=== PATIENT | female | born 1985 | race African-American/Black ===

== ENCOUNTER 2016-06-13 21:27 | Emergency (ER) | payer MEDICAID ==
--- NOTE | 2016-06-13 22:04 | ER Document Report ---
ED Medical Screen (RME) - General Chief Complaint: Diarrhea Stated Complaint: DIARRHEA/HEADACHE/SORE THROAT Time seen by provider: 22:01 Mode of Arrival: Ambulatory Information source: Patient Notes: 30 yo female presents to ed for smelly burps, nausea, diarrhea, headache, sore throat, and chest pain for a few days. LMP jun 05 TRAVEL OUTSIDE OF THE [place] IN LAST 30 DAYS: No - HPI Onset: Other - 2 days ago Onset/Duration: Gradual Quality of pain: Pressure, Throbbing Severity: Moderate Pain Level: 3 Associated Symptoms: Chest pain, Diarrhea, Sore throat, Other - smelly burps Exacerbated by: Denies Relieved by: Denies Similar symptoms previously: No Recently seen / treated by doctor: No - Related Data Smoking: Cigarettes, Less than 1 pack/day Frequency of alcohol use: Rare Drug Abuse: None Allergies/Adverse Reactions: No Known Allergies Allergy (Verified 06/13/16 21:51) Past Medical History - Social History Chew tobacco use (# tins/day): No Frequency of alcohol use: Occasional Drug Abuse: None Family history: Reviewed & Not Pertinent Neurological Medical History: Reports: Hx Migraine Renal/ Medical History: Reports: Hx Kidney Stones Musculoskeltal Medical History: Reports Hx Musculoskeletal Trauma Skin Medical History: Reports Hx Cellulitis, Reports Hx Eczema Psychiatric Medical History: Reports: Hx Bipolar Disorder, Hx Depression - Immunizations Hx Diphtheria, Pertussis, Tetanus Vaccination: No
[2016-06-13 22:29] LABS: ABSOLUTE EOSINOPHILS # (AUTO) 0.1 10^3/uL (0.0-0.6); ABSOLUTE LYMPHOCYTES (AUTO) 1.7 10^3/uL (0.5-4.7); ABSOLUTE MONOCYTES (AUTO) 0.5 10^3/uL (0.1-1.4); ABSOLUTE NEUT (AUTO) 3.1 10^3/uL (1.7-8.2); BASOPHILS % (AUTO) 0.4 % (0-2); EOSINOPHILS % (AUTO) 1.9 % (0-6); HEMATOCRIT 38.8 % (36.0-47.0); HEMOGLOBIN 12.8 g/dL (12.0-15.5); HGB HCT DIFFERENCE -0.4; LYMPHOCYTES % (AUTO) 31.4 % (13-45); MEAN CORPUSCULAR HEMOGLOBIN 28.9 pg (27.0-33.4); MEAN CORPUSCULAR VOLUME 88 fl (80-97); MONOCYTES % (AUTO) 8.5 % (3-13); RED BLOOD COUNT 4.43 10^6/uL (3.72-5.28); RED CELL DISTRIBUTION WIDTH 13.2 % (11.5-14.0); SEGMENTED NEUTROPHILS % (AUTO) 57.8 % (42-78); WHITE BLOOD COUNT 5.3 10^3/uL (4.0-10.5)
[2016-06-13 22:45] LABS: ALANINE AMINOTRANSFERASE 40 U/L (9-52); ALKALINE PHOSPHATASE 77 U/L (38-126); ANION GAP 10 (5-19); ASPARTATE AMINO TRANSFERASE 26 U/L (14-36); BILIRUBIN,TOTAL 0.2 mg/dL (0.2-1.3); BLOOD UREA NITROGEN 8 mg/dL (7-20); CALCIUM 8.8 mg/dL (8.4-10.2); CARBON DIOXIDE 27 mmol/L (22-30); CHLORIDE 105 mmol/L (98-107); CREATINE KINASE 136 U/L (30-135); CREATININE RESULT 0.67 mg/dL (0.52-1.25); GLUCOSE 95 mg/dL (75-110); MAGNESIUM 1.7 mg/dL (1.6-2.3); POTASSIUM 3.7 mmol/L (3.6-5.0); SODIUM 142.1 mmol/L (137-145); TOTAL PROTEIN 6.5 g/dL (6.3-8.2)
[2016-06-13 22:56] LABS: CREATINE KINASE MB 0.67 ng/mL (<4.55)
[2016-06-13 22:57] LABS: TROPONIN I < 0.012 ng/mL
[2016-06-14] MEDS ORDERED: LOPERAMIDE HCL 2 MG CAPSULE PO ONE (02:28)
[2016-06-14] MEDS ORDERED: SUCRALFATE 1 GM TABLET PO ONE (02:28)
[2016-06-14] MEDS ORDERED: ONDANSETRON 4 MG TAB.RAPDIS PO ONE (02:28)
--- NOTE | 2016-06-14 02:28 | ER Document Report ---
ED GI/ - General Mode of Arrival: Ambulatory Information source: Patient TRAVEL OUTSIDE OF THE [place] IN LAST 30 DAYS: No - HPI Patient complains to provider of: Other - see above Quality of pain: Burning, Cramping Associated symptoms: Other - see above Similar symptoms previously: No Recently seen / treated by doctor: No <BETTIE DESAI - Last Filed: 06/14/16 04:19> <LUIS EDUARDO HUERTAS - Last Filed: 06/14/16 05:13> - General Chief Complaint: Diarrhea Stated Complaint: DIARRHEA/HEADACHE/SORE THROAT Notes: Patient is a 30-year-old female that presents to the emergency department today with complaints of nausea, burping, and chest pain. Patient states she has had no vomiting but has had multiple episodes of diarrhea. Patient states she has not used any antibiotics recently. (BETTIE DESAI) - Related Data Allergies/Adverse Reactions: No Known Allergies Allergy (Verified 06/13/16 21:51) Past Medical History - General Information source: Patient - Social History Smoking Status: Current Some Day Smoker Cigarette use (# per day): Yes Chew tobacco use (# tins/day): No Frequency of alcohol use: Occasional Drug Abuse: None Lives with: Family Family History: Reviewed & Not Pertinent Patient has suicidal ideation: No Patient has homicidal ideation: No Neurological Medical History: Reports: Hx Migraine Renal/ Medical History: Reports: Hx Kidney Stones Musculoskeltal Medical History: Reports Hx Musculoskeletal Trauma Skin Medical History: Reports Hx Cellulitis, Reports Hx Eczema Psychiatric Medical History: Reports: Hx Bipolar Disorder, Hx Depression Surgical Hx: Negative - Immunizations Hx Diphtheria, Pertussis, Tetanus Vaccination: No Hx Pneumococcal Vaccination: 03/09/12 <BETTIE DESAI - Last Filed: 06/14/16 04:19> Review of Systems - Review of Systems Constitutional: No symptoms reported EENT: No symptoms reported Cardiovascular: See HPI, Chest pain Respiratory: No symptoms reported Gastrointestinal: See HPI, Nausea, Other - "burping" Genitourinary: No symptoms reported Female Genitourinary: No symptoms reported Musculoskeletal: No symptoms reported Skin: No symptoms reported Hematologic/Lymphatic: No symptoms reported Neurological/Psychological: No symptoms reported -: Yes All other systems reviewed and negative <BETTIE DESAI - Last Filed: 06/14/16 04:19> Physical Exam <BETTIE DESAI - Last Filed: 06/14/16 04:19> <LUIS EDUARDO HUERTAS - Last Filed: 06/14/16 05:13> - Vital signs Vitals: Temp Pulse Resp BP Pulse Ox 98.3 F 85 18 148/84 H 99 06/13/16 22:03 06/13/16 22:03 06/13/16 22:03 06/13/16 22:03 06/13/16 22:03 (BETTIE DESAI) (LUIS EDUARDO HUERTAS) - Notes Notes: Physical Exam: General: Alert, appears well. HEENT: Normocephalic. Atraumatic. PERRL. Extraocular movements intact. Oropharynx clear. Neck: Supple. Non-tender. Respiratory: No respiratory distress. Clear and equal breath sounds bilaterally. Cardiovascular: Regular rate and rhythm. Abdominal: Obese. Non-tender. No distension. Normal Bowel Sounds. Back: Non-tender. No deformity or step off. Extremities: Moves all four extremities. Upper extremities: Normal inspection. Non-tender. Normal color. Normal ROM. Normal temperature. Lower extremities: Normal inspection. Non-tender. No edema. Normal color. Normal ROM. Normal temperature. Neurological: Normal cognition. AAOx4. Normal speech. Psychological: Normal affect. Normal Mood. Skin: Warm. Dry. Normal color. (BETTIE DESAI) Course - Laboratory Result Diagrams: 06/13/16 22:15 06/13/16 22:15 <BETTIE DESAI - Last Filed: 06/14/16 04:19> - Laboratory Result Diagrams: 06/13/16 22:15 06/13/16 22:15 <LUIS EDUARDO HUERTAS - Last Filed: 06/14/16 05:13> - Re-evaluation Re-evalutation: 06/14/16 Patient appears well. Labs within normal limits. Taking by mouth. No for discharge home. Return if any worsening or concerning symptoms. Stable for discharge. Understands agrees with plan. (LUIS EDUARDO HUERTAS) - Vital Signs Vital signs: Temp Pulse Resp BP Pulse Ox 98.1 F 87 16 130/82 H 97 06/14/16 02:44 06/14/16 02:44 06/14/16 02:44 06/14/16 02:44 06/14/16 02:44 (BETTIE DESAI) (LUIS EDUARDO HUERTAS) - Laboratory Laboratory results interpreted by me: 06/13/16 22:15 Creatine Kinase 136 H Albumin 3.0 L (BETTIE DESAI) (LUIS EDUARDO HUERTAS) Discharge <BETTIE DESAI - Last Filed: 06/14/16 04:19> <LUIS EDUARDO HUERTAS - Last Filed: 06/14/16 05:13> - Discharge Clinical Impression: Diarrhea Qualifiers: Diarrhea type: unspecified type Qualified Code(s): R19.7 - Diarrhea, unspecified Headache Qualifiers: Headache type: unspecified Headache chronicity pattern: acute headache Intractability: not intractable Qualified Code(s): R51 - Headache GERD (gastroesophageal reflux disease) Qualifiers: Esophagitis presence: esophagitis presence not specified Qualified Code(s): K21.9 - Gastro-esophageal reflux disease without esophagitis Condition: Stable Disposition: HOME, SELF-CARE Instructions: Diarrhea, Nonspecific ([facility]), Reflux Disease (GERD) ([facility]) Prescriptions: Ondansetron [Zofran Odt 4 mg Tablet] 1 - 2 tab PO Q4HP PRN #10 tab.rapdis PRN Reason: Sucralfate [Carafate 1 gm Tablet] 1 gm PO ACHS #40 tablet Scribe Attestation: 06/14/16 05:13 I personally performed the services described in the documentation, reviewed and edited the documentation which was dictated to the scribe in my presence, and it accurately records my words and actions. (LUIS EDUARDO HUERTAS) Scribe Documentation - Scribe Written by Lauraiboctaviano:: Jose Roberto Nassar, [id number] 06/14/2016 acting as scribe for :: Oliver <BETTIE DESAI - Last Filed: 06/14/16 04:19>
[2016-06-14 02:47] VITALS: BP 130/82
--- NOTE | 2016-06-14 10:24 | EKG REPORT ---
SEVERITY:- ABNORMAL ECG - SINUS RHYTHM INCOMPLETE RIGHT BUNDLE BRANCH BLOCK : Confirmed by: Jean Paul Connor 14-Jun-2016 10:23:02
== END 2016-06-14 02:49 | disposition home or self-care (01) ==
LOC: ER 21:27
DX: R19.7 Diarrhea, unspecified (principal); R51 Headache; K21.9 Gastro-esophageal reflux disease without esophagitis; J02.9 Acute pharyngitis, unspecified; R11.0 Nausea; F17.210 Nicotine dependence, cigarettes, uncomplicated; Z87.442 Personal history of urinary calculi
CPT/HCPCS: 93005; 99284; 36415; 82553; 82550; 83690; 83735; 85025; 80053; 84484; 71020; 76700; 93010; S0119; J3490 ×2

== ENCOUNTER 2016-09-29 05:32 | Emergency (ER) | payer MEDICAID ==
--- NOTE | 2016-09-29 06:22 | ER Document Report ---
ED GI/ <JASPALVAL - Last Filed: 09/29/16 08:45> - General TRAVEL OUTSIDE OF THE [place] IN LAST 30 DAYS: No - HPI Patient complains to provider of: Abdominal pain, Diarrhea Onset: Other - see HPI note Timing/Duration: Gradual Similar symptoms previously: No Recently seen / treated by doctor: No <SHERLYN BROWN - Last Filed: 09/29/16 13:25> - General Chief Complaint: Abdominal Pain Stated Complaint: ABDOMINAL PAIN Notes: Patient is a 31-year-old female presenting to the emergency department for abdominal pain and back pain for the past 2 days. Patient states that her pain starts in her left side and moves around into her epigastric area and back. Patient states her pain got better with eating. Patient has a history of GERD has not been medicated for such. Patient states she drinks 2-3 cups of coffee a day, takes Motrin occasionally and also eats greasy foods. Patient states she has also had some diarrhea with nausea but no vomiting. Patient has no known allergies. (SHERLYN BROWN) - Related Data Allergies/Adverse Reactions: No Known Allergies Allergy (Verified 09/29/16 07:09) Past Medical History - General Information source: Patient - Social History Smoking Status: Current Every Day Smoker Family History: None Patient has suicidal ideation: No Patient has homicidal ideation: No Neurological Medical History: Reports: Hx Migraine Renal/ Medical History: Reports: Hx Kidney Stones GI Medical History: Reports: Hx Gastroesophageal Reflux Disease Musculoskeltal Medical History: Reports Hx Musculoskeletal Trauma Skin Medical History: Reports Hx Cellulitis, Reports Hx Eczema Psychiatric Medical History: Reports: Hx Anxiety, Hx Bipolar Disorder, Hx Depression - Immunizations Hx Diphtheria, Pertussis, Tetanus Vaccination: No Hx Pneumococcal Vaccination: 03/09/12 <SHERLYN BROWN - Last Filed: 09/29/16 13:25> Review of Systems - Review of Systems Constitutional: No symptoms reported EENT: No symptoms reported Cardiovascular: No symptoms reported Respiratory: No symptoms reported Gastrointestinal: See HPI, Abdominal pain, Diarrhea, Nausea. denies: Vomiting Genitourinary: No symptoms reported Female Genitourinary: No symptoms reported Musculoskeletal: No symptoms reported Skin: No symptoms reported Hematologic/Lymphatic: No symptoms reported Neurological/Psychological: No symptoms reported -: Yes All other systems reviewed and negative <SHERLYN BROWN - Last Filed: 09/29/16 13:25> Physical Exam - Vital signs Interpretation: Normal - General General appearance: Appears well, Alert In distress: Mild - HEENT Head: Normocephalic, Atraumatic Eyes: Normal Pupils: PERRL Mucous membranes: Moist - Respiratory Respiratory status: No respiratory distress Chest status: Nontender Breath sounds: Normal Chest palpation: Normal - Cardiovascular Rhythm: Regular Heart sounds: Normal auscultation Murmur: No - Abdominal Inspection: Normal Distension: No distension Bowel sounds: Normal Tenderness: Nontender Organomegaly: No organomegaly - Back Back: Normal, Nontender - Extremities General upper extremity: Normal inspection, Normal ROM, Normal strength General lower extremity: Normal inspection, Normal ROM, Normal strength - Neurological Neuro grossly intact: Yes Cognition: Normal Orientation: AAOx4 Kana Coma Scale Eye Opening: Spontaneous Kana Coma Scale Verbal: Oriented Kana Coma Scale Motor: Obeys Commands [place] Coma Scale Total: 15 Speech: Normal Sensory: Normal - Psychological Associated symptoms: Normal affect, Normal mood - Skin Skin Temperature: Warm Skin Moisture: Dry <SHERLYN BROWN - Last Filed: 09/29/16 13:25> - Vital signs Vitals: Temp Pulse Resp BP Pulse Ox 98.3 F 85 16 148/90 H 97 09/29/16 05:36 09/29/16 05:36 09/29/16 05:36 09/29/16 05:36 09/29/16 05:36 Course - Laboratory Result Diagrams: 09/29/16 06:05 09/29/16 06:05 <VAL SHAY - Last Filed: 09/29/16 08:45> - Laboratory Result Diagrams: 09/29/16 06:05 09/29/16 06:05 <SHERLYN BROWN - Last Filed: 09/29/16 13:25> - Vital Signs Vital signs: Temp Pulse Resp BP Pulse Ox 98.6 F 71 20 137/85 H 100 09/29/16 09:07 09/29/16 09:07 09/29/16 09:07 09/29/16 09:07 09/29/16 09:07 - Laboratory Laboratory results interpreted by me: 09/29/16 09/29/16 06:05 07:03 Chloride 108 H Glucose 141 H Albumin 3.0 L Urine Protein >=500 H Urine Blood SMALL H Discharge <JASPAL,VAL - Last Filed: 09/29/16 08:45> <SHERLYN BROWN - Last Filed: 09/29/16 13:25> - Discharge Clinical Impression: history of GERD Abdominal pain Qualifiers: Abdominal location: upper abdomen, unspecified Qualified Code(s): R10.10 - Upper abdominal pain, unspecified Condition: Stable Disposition: HOME, SELF-CARE Additional Instructions: Abdominal Pain There are many causes of abdominal pain. Pain can mean a serious problem requiring surgery (such as appendicitis). It can also be an innocent problem that goes away on its own (such as a viral infection). Often, time must pass to determine the cause of pain. The physician does not feel that hospitalization is necessary, at present. Things may change within the next 24 hours. Call the doctor or come back for re- examination if any problems occur, such as: (1) Pain that becomes more severe, steady, or becomes concentrated in one specific area. Also, pain that is more severe with movement or coughing. (2) Vomiting that persists or becomes more frequent. (3) Blood in the vomitus, urine, or bowel movements. Blood in the stool may have a tarry or black appearance. (4) Shaking chills or fever greater than 100 degrees F. (5) The abdomen becomes more distended or swollen. (6) Bowel movements cease. (7) Failure to improve as expected. Prescriptions: Omeprazole Magnesium [Prilosec Otc] 20 mg PO DAILY #20 tablet. Sucralfate [Carafate 1 gm Tablet] 1 gm PO ACHS #120 tablet Referrals: LINCOLN ALSTON, NO EXPERIENCE-C [Primary Care Provider] - (In 2-3 days return for increasing worsening or new symptoms) Scribe Attestation: 09/29/16 08:45 I personally performed the services described in the documentation reviewed the documentation recorded by my scribe in my presence and it accurately and completely records my words and actions (VAL SHAY) Scribe Documentation - Scribe Written by Scribe:: Sherlyn Brown 09/29/16 13:24 acting as scribe for :: Jaspal <SHERLYN BROWN - Last Filed: 09/29/16 13:25>
[2016-09-29 06:29] LABS: ABSOLUTE EOSINOPHILS # (AUTO) 0.1 10^3/uL (0.0-0.6); ABSOLUTE LYMPHOCYTES (AUTO) 1.5 10^3/uL (0.5-4.7); ABSOLUTE MONOCYTES (AUTO) 0.3 10^3/uL (0.1-1.4); BASOPHILS % (AUTO) 0.4 % (0-2); EOSINOPHILS % (AUTO) 1.3 % (0-6); HEMATOCRIT 36.9 % (36.0-47.0); HEMOGLOBIN 12.1 g/dL (12.0-15.5); HGB HCT DIFFERENCE -0.6; LYMPHOCYTES % (AUTO) 30.5 % (13-45); MEAN CORPUSCULAR HEMOGLOBIN 28.9 pg (27.0-33.4); MEAN CORPUSCULAR HGB CONC 32.7 g/dL (32.0-36.0); MEAN CORPUSCULAR VOLUME 89 fl (80-97); MONOCYTES % (AUTO) 6.6 % (3-13); RED BLOOD COUNT 4.17 10^6/uL (3.72-5.28); RED CELL DISTRIBUTION WIDTH 13.8 % (11.5-14.0); SEGMENTED NEUTROPHILS % (AUTO) 61.2 % (42-78); WHITE BLOOD COUNT 4.9 10^3/uL (4.0-10.5)
[2016-09-29 06:32] LABS: ALANINE AMINOTRANSFERASE 17 U/L (9-52); ALKALINE PHOSPHATASE 71 U/L (38-126); ANION GAP 10 (5-19); ASPARTATE AMINO TRANSFERASE 16 U/L (14-36); BILIRUBIN,DIRECT 0.3 mg/dL (0.0-0.4); BILIRUBIN,TOTAL 0.4 mg/dL (0.2-1.3); BLOOD UREA NITROGEN 11 mg/dL (7-20); CALCIUM 8.6 mg/dL (8.4-10.2); CARBON DIOXIDE 25 mmol/L (22-30); CHLORIDE 108 mmol/L (98-107); CREATININE RESULT 0.58 mg/dL (0.52-1.25); GLUCOSE 141 mg/dL (75-110); LIPASE 75.2 U/L (23-300); POTASSIUM 4.2 mmol/L (3.6-5.0); SODIUM 142.5 mmol/L (137-145); TOTAL PROTEIN 6.5 g/dL (6.3-8.2)
[2016-09-29 07:31] LABS: APPEARANCE,URINE SLIGHTLY-CLOUDY; BILIRUBIN,URINE NEGATIVE (NEGATIVE); GLUCOSE, URINE NEGATIVE (NEGATIVE); KETONES,URINE NEGATIVE (NEGATIVE); LEUKOCYTE ESTERASE,URINE NEGATIVE (NEGATIVE); NITRITE,URINE NEGATIVE (NEGATIVE); PROTEIN,URINE >=500 mg/dL (NEGATIVE); URINE SPECIFIC GRAVITY 1.018; UROBILINOGEN,URINE NEGATIVE mg/dL (<2.0)
[2016-09-29] MEDS ORDERED: LIDOCAINE 2% VISCOUS SOLN 20 ML UDCUP PO ONE (08:39)
[2016-09-29] MEDS ORDERED: METOCLOPRAMIDE HCL ORAL SOLN 10 MG/10 ML UDCUP PO ONE (08:39)
[2016-09-29] MEDS ORDERED: MAG HYDROX/AL HYDROX/SIMETH SUSP 30 ML UDCUP PO ONE (08:39)
[2016-09-29 09:09] VITALS: BP 137/85
== END 2016-09-29 09:07 | disposition home or self-care (01) ==
LOC: ER 05:32
DX: R10.10 Upper abdominal pain, unspecified (principal); K21.9 Gastro-esophageal reflux disease without esophagitis; R10.9 Unspecified abdominal pain; M54.9 Dorsalgia, unspecified; R19.7 Diarrhea, unspecified; R11.0 Nausea; F17.200 Nicotine dependence, unspecified, uncomplicated
CPT/HCPCS: 99284; 36415; 83690; 85025; 81025; 80053; 81001; 74176; J3490 ×3

== ENCOUNTER 2016-11-01 22:14 | Emergency (ER) | payer MEDICAID ==
[2016-11-01] MEDS ORDERED: POLYMYXIN B SULFATE/TMP OPH SOLN 10 ML OU ONE (23:01)
[2016-11-01] MEDS ORDERED: POLYMYXIN B SULFATE/TMP OPH SOLN 10 ML ONE (23:27)
--- NOTE | 2016-11-01 23:31 | ER Document Report ---
HPI - HPI Patient complains to provider of: eye irritation and discharge, ear pain, sore throat Pain Level: 3 Context: Patient is a 31-year-old female who comes emergency department for chief complaint of eye discharge from both sides with crusting of eyelids, patient states her daughter also has the same symptom, patient also reports several days of some postnasal drip and a mild sore throat and that now she has pain in her right ear and difficulty hearing out of the right ear. She denies fevers. She denies injury. She denies visual correction. - CARDIOVASCULAR Cardiovascular: DENIES: Chest pain - REPRODUCTIVE Reproductive: DENIES: : - DERM Skin Color: Normal Past Medical History - General Information source: Patient - Social History Smoking Status: Current Every Day Smoker Chew tobacco use (# tins/day): No Frequency of alcohol use: Occasional Drug Abuse: None Lives with: Family Family History: None Patient has suicidal ideation: No Patient has homicidal ideation: No Neurological Medical History: Reports: Hx Migraine Renal/ Medical History: Reports: Hx Kidney Stones. Denies: Hx Peritoneal Dialysis GI Medical History: Reports: Hx Gastroesophageal Reflux Disease Musculoskeltal Medical History: Reports Hx Musculoskeletal Trauma Skin Medical History: Reports Hx Cellulitis, Reports Hx Eczema Psychiatric Medical History: Reports: Hx Anxiety, Hx Bipolar Disorder, Hx Depression Surgical Hx: Negative - Immunizations Hx Diphtheria, Pertussis, Tetanus Vaccination: No Hx Pneumococcal Vaccination: 03/09/12 Vertical Provider Document - CONSTITUTIONAL General Appearance: WD/WN, No Apparent Distress, Obese - INFECTION CONTROL TRAVEL OUTSIDE OF THE [place] IN LAST 30 DAYS: No - HEENT HEENT: Atraumatic, Conjuctival Injection - Mild bilateral conjunctival injection with small amount of matting and very small amount of discolored and whitish discharge over the medial canthus bilaterally. Normal EOMs, normal pupillary response, no photophobia, no hyphema, no other abnormality otherwise, Normocephalic, Pharyngeal Erythema - very mild pharyngeal erythema. negative: Normal ENT Exam - Right tympanic membrane with erythema, loss of landmarks, effusion. Otherwise normal ENT exam - NECK Neck: Normal Inspection - RESPIRATORY Respiratory: Breath Sounds Normal, No Respiratory Distress O2 Sat by Pulse Oximetry: 99 - CARDIOVASCULAR Cardiovascular: Regular Rate, Regular Rhythm - GI/ABDOMEN Gastrointestinal: Abdomen Soft, Abdomen Non-Tender - BACK Back: Normal Inspection. negative: Abnormal Inspection - MUSCULOSKELETAL/EXTREMETIES Musculoskeletal/Extremeties: MAEW, FROM, Non-Tender - NEURO Level of Consciousness: Awake, Alert, Appropriate Course - Vital Signs Vital signs: Temp Pulse Resp BP Pulse Ox 98.5 F 97 17 144/92 H 99 11/01/16 22:27 11/01/16 22:27 11/01/16 22:27 11/01/16 22:27 11/01/16 22:27 Discharge - Discharge Clinical Impression: Conjunctivitis Qualifiers: Conjunctivitis type: acute Acute conjunctivitis type: unspecified Laterality: bilateral Qualified Code(s): H10.33 - Unspecified acute conjunctivitis, bilateral Otitis media Qualifiers: Otitis media type: suppurative Laterality: right Chronicity: acute Recurrence: not specified as recurrent Spontaneous tympanic membrane rupture: without spontaneous rupture Qualified Code(s): H66.001 - Acute suppurative otitis media without spontaneous rupture of ear drum, right ear Condition: Stable Disposition: HOME, SELF-CARE Additional Instructions: Examination is consistent with probably a viral syndrome with additional conjunctivitis (pinkeye) and right-sided otitis media and sees ear infection). Take the oral antibiotic as directed, take the eyedrops as directed, use the Flonase as prescribed. Take Tylenol or ibuprofen for body aches and pain. Follow-up with primary care. Return to emergency department for any concerning or worsening symptoms including swelling or redness around the ear, swelling of the eyes or loss of vision, or any other concerning symptoms. Prescriptions: Amoxicillin Trihydrate [Amoxil 875 mg Tablet] 1 tab PO BID #20 tablet Fluticasone Propionate [Flonase Nasal [place] 50 Mcg/[place] 16 gm] 2 sprays NASL Q12 #1 inhaler Polymyxin B Sulfate/Tmp [Polytrim Oph Soln 10 ml] 1 dose OP ASDIR PRN #1 bottle PRN Reason: Forms: Return to Work Referrals: LINCOLN ALSTON FNP-C [Primary Care Provider] - Follow up as needed
[2016-11-01 23:48] VITALS: BP 124/81
== END 2016-11-01 23:46 | disposition home or self-care (01) ==
LOC: ER 22:14
DX: H10.33 Unspecified acute conjunctivitis, bilateral (principal); H66.001 Acute suppurative otitis media without spontaneous rupture of ear drum, right ear; H92.09 Otalgia, unspecified ear; J02.9 Acute pharyngitis, unspecified; F17.200 Nicotine dependence, unspecified, uncomplicated
CPT/HCPCS: 99282; J3490

== ENCOUNTER 2017-01-01 16:04 | Emergency (ER) | payer MEDICAID ==
--- NOTE | 2017-01-01 16:45 | ER Document Report ---
ED Medical Screen (RME) - General Chief Complaint: Swelling Stated Complaint: SHORTNESS OF BREATH/PAIN IN HANDS Time Seen by Provider: 01/01/17 16:39 Notes: Patient states she has bilateral foot swelling and pain. She also states she has had some shortness of breath and chest pain. She denies any swelling of her lower extremities except in the feet. She has had no cough or cold symptoms. TRAVEL OUTSIDE OF THE [place] IN LAST 30 DAYS: No - Related Data Allergies/Adverse Reactions: No Known Allergies Allergy (Verified 01/01/17 16:23) Home Medications: Current Home Medications No Home Medications 01/01/17 [History] Past Medical History - Social History Chew tobacco use (# tins/day): No Frequency of alcohol use: Occasional Family history: Reviewed & Not Pertinent Neurological Medical History: Reports: Hx Migraine Renal/ Medical History: Reports: Hx Kidney Stones. Denies: Hx Peritoneal Dialysis GI Medical History: Reports: Hx Gastroesophageal Reflux Disease Musculoskeltal Medical History: Reports Hx Musculoskeletal Trauma Skin Medical History: Reports Hx Cellulitis, Reports Hx Eczema Psychiatric Medical History: Reports: Hx Anxiety, Hx Bipolar Disorder, Hx Depression - Immunizations Hx Diphtheria, Pertussis, Tetanus Vaccination: No Physical Exam - Vital signs Vitals: Temp Pulse Resp BP Pulse Ox 98.9 F 88 18 150/90 H 98 01/01/17 16:13 01/01/17 16:13 01/01/17 16:13 01/01/17 16:13 01/01/17 16:13 Course - Vital Signs Vital signs: Temp Pulse Resp BP Pulse Ox 98.9 F 88 18 150/90 H 98 01/01/17 16:13 01/01/17 16:13 01/01/17 16:13 01/01/17 16:13 01/01/17 16:13
[2017-01-01 17:08] LABS: ABSOLUTE EOSINOPHILS # (AUTO) 0.1 10^3/uL (0.0-0.6); ABSOLUTE LYMPHOCYTES (AUTO) 2.1 10^3/uL (0.5-4.7); ABSOLUTE MONOCYTES (AUTO) 0.4 10^3/uL (0.1-1.4); BASOPHILS % (AUTO) 0.6 % (0-2); EOSINOPHILS % (AUTO) 1.5 % (0-6); HEMATOCRIT 36.5 % (36.0-47.0); HGB HCT DIFFERENCE -0.5; LYMPHOCYTES % (AUTO) 37.8 % (13-45); MEAN CORPUSCULAR HEMOGLOBIN 29.4 pg (27.0-33.4); MEAN CORPUSCULAR HGB CONC 32.8 g/dL (32.0-36.0); MEAN CORPUSCULAR VOLUME 90 fl (80-97); MONOCYTES % (AUTO) 6.2 % (3-13); RED BLOOD COUNT 4.07 10^6/uL (3.72-5.28); RED CELL DISTRIBUTION WIDTH 13.4 % (11.5-14.0); SEGMENTED NEUTROPHILS % (AUTO) 53.9 % (42-78); WHITE BLOOD COUNT 5.6 10^3/uL (4.0-10.5)
[2017-01-01 17:16] LABS: APPEARANCE,URINE CLEAR; BILIRUBIN,URINE NEGATIVE (NEGATIVE); GLUCOSE, URINE NEGATIVE (NEGATIVE); KETONES,URINE NEGATIVE (NEGATIVE); LEUKOCYTE ESTERASE,URINE NEGATIVE (NEGATIVE); NITRITE,URINE NEGATIVE (NEGATIVE); PROTEIN,URINE >=500 mg/dL (NEGATIVE); URINE SPECIFIC GRAVITY 1.016; UROBILINOGEN,URINE NEGATIVE mg/dL (<2.0)
[2017-01-01 17:24] LABS: ALANINE AMINOTRANSFERASE 22 U/L (9-52); ALBUMIN 2.7 g/dL (3.5-5.0); ALKALINE PHOSPHATASE 68 U/L (38-126); ANION GAP 8 (5-19); ASPARTATE AMINO TRANSFERASE 16 U/L (14-36); BILIRUBIN,DIRECT 0.3 mg/dL (0.0-0.4); BILIRUBIN,TOTAL 0.3 mg/dL (0.2-1.3); BLOOD UREA NITROGEN 9 mg/dL (7-20); CALCIUM 8.8 mg/dL (8.4-10.2); CARBON DIOXIDE 25 mmol/L (22-30); CHLORIDE 106 mmol/L (98-107); CREATININE RESULT 0.58 mg/dL (0.52-1.25); GLUCOSE 119 mg/dL (75-110); POTASSIUM 3.9 mmol/L (3.6-5.0); SODIUM 139.3 mmol/L (137-145)
[2017-01-01 17:36] LABS: TROPONIN I < 0.012 ng/mL
--- NOTE | 2017-01-01 17:40 | EKG REPORT ---
SEVERITY:- ABNORMAL ECG - SINUS RHYTHM ABNORMAL T, CONSIDER ISCHEMIA, INFERIOR LEADS : Confirmed by: Jo Suresh MD 01-Jan-2017 17:39:32
--- NOTE | 2017-01-01 17:59 | RADIOLOGY REPORT (SQ) ---
EXAM DESCRIPTION: CHEST PA/LAT COMPLETED DATE/TIME: 01/01/2017 5:13 pm REASON FOR STUDY: cp/sob COMPARISON: June 2016 EXAM PARAMETERS: NUMBER OF VIEWS: two views TECHNIQUE: Digital Frontal and Lateral radiographic views of the chest acquired. RADIATION DOSE: NA LIMITATIONS: none FINDINGS: LUNGS AND PLEURA: No opacities, masses or pneumothorax. No pleural effusion. MEDIASTINUM AND HILAR STRUCTURES: No masses or contour abnormalities. HEART AND VASCULAR STRUCTURES: Heart normal size. No evidence for failure. BONES: No acute findings. HARDWARE: None in the chest. OTHER: No other significant finding. IMPRESSION: NO SIGNIFICANT RADIOGRAPHIC FINDING IN THE CHEST. TECHNICAL DOCUMENTATION: JOB ID: [id number] All Rights Reserved
--- NOTE | 2017-01-01 18:02 | ER Document Report ---
ED General - General Chief Complaint: Swelling Stated Complaint: SHORTNESS OF BREATH/PAIN IN HANDS Time Seen by Provider: 01/01/17 16:39 Mode of Arrival: Ambulatory Information source: Patient TRAVEL OUTSIDE OF THE [place] IN LAST 30 DAYS: No - HPI Patient complains to provider of: Extremity swelling Onset: Other - 3 weeks Onset/Duration: Gradual Quality of pain: Achy, Fullness, Pressure Severity: Moderate Associated symptoms: Shortness of breath Exacerbated by: Denies Relieved by: Denies Similar symptoms previously: Yes Recently seen / treated by doctor: No Notes: Patient is a 31-year-old female with a history of anxiety and bipolar depression , who is not currently taking any medications, she presents to the emergency room complaining of bilateral feet swelling with pain and pressure for the past few weeks, which improves after she elevates them, but immediately returns, she is also having some shortness of breath, and some "puffiness" in her wrists, patient works as a trailer tank truck driver, she denies any particular injury, no long distance traveling, she has had similar symptoms in the past during but she is not currently to her knowledge, she is a smoker - Related Data Allergies/Adverse Reactions: No Known Allergies Allergy (Verified 01/01/17 16:23) Past Medical History - General Information source: Patient - Social History Smoking Status: Current Every Day Smoker Chew tobacco use (# tins/day): No Frequency of alcohol use: Occasional Family History: None Neurological Medical History: Reports: Hx Migraine Renal/ Medical History: Reports: Hx Kidney Stones. Denies: Hx Peritoneal Dialysis GI Medical History: Reports: Hx Gastroesophageal Reflux Disease Musculoskeltal Medical History: Reports Hx Musculoskeletal Trauma Skin Medical History: Reports Hx Cellulitis, Reports Hx Eczema Psychiatric Medical History: Reports: Hx Anxiety, Hx Bipolar Disorder, Hx Depression - Immunizations Hx Diphtheria, Pertussis, Tetanus Vaccination: No Hx Pneumococcal Vaccination: 03/09/12 Review of Systems - Review of Systems Constitutional: No symptoms reported EENT: No symptoms reported Cardiovascular: Edema Respiratory: Short of breath Gastrointestinal: No symptoms reported Genitourinary: No symptoms reported Female Genitourinary: No symptoms reported Musculoskeletal: No symptoms reported Skin: No symptoms reported Hematologic/Lymphatic: No symptoms reported Neurological/Psychological: No symptoms reported -: Yes All other systems reviewed and negative Physical Exam - Vital signs Vitals: Temp Pulse Resp BP Pulse Ox 98.9 F 88 18 150/90 H 98 01/01/17 16:13 01/01/17 16:13 01/01/17 16:13 01/01/17 16:13 01/01/17 16:13 Interpretation: Normal - General General appearance: Appears well, Alert - HEENT Head: Normocephalic, Atraumatic Eyes: Normal Pupils: PERRL - Respiratory Respiratory status: No respiratory distress Chest status: Nontender Breath sounds: Normal Chest palpation: Normal - Cardiovascular Rhythm: Regular Heart sounds: Normal auscultation Murmur: No - Abdominal Inspection: Morbidly Obese Distension: No distension Bowel sounds: Normal Tenderness: Nontender Organomegaly: No organomegaly - Back Back: Normal, Nontender - Extremities General upper extremity: Normal inspection, Nontender, Normal color, Normal ROM , Normal temperature General lower extremity: Edema - Trace, bilateral lower extremities, Normal color, Normal ROM, Normal temperature. No: He's sign - Neurological Neuro grossly intact: Yes Cognition: Normal Orientation: AAOx4 Kana Coma Scale Eye Opening: Spontaneous [place] Coma Scale Verbal: Oriented Kana Coma Scale Motor: Obeys Commands Kana Coma Scale Total: 15 Speech: Normal Motor strength normal: LUE, RUE, LLE, RLE Sensory: Normal - Psychological Associated symptoms: Normal affect, Normal mood - Skin Skin Temperature: Warm Skin Moisture: Dry Skin Color: Normal Course - Re-evaluation Re-evalutation: 01/01/17 18:41 Patient was discussed with inclusion specialist, Dr. Britton, patient's presentation as well as lab values and vital signs have been discussed, he agrees that patient likely has a nephrotic syndrome, he recommends patient follow up with him in the office for additional evaluation and treatment, likely a kidney biopsy, he also requested that additional blood work be performed approximately 5 days prior to her appointment once it is made, I will give patient a slip to have outpatient testing done, she will also be started on Lasix 20 mg daily based on Dr. Britton's recommendation, these plans were discussed with patient at bedside , she acknowledges understanding and agreement - Vital Signs Vital signs: Temp Pulse Resp BP Pulse Ox 98.9 F 88 18 150/90 H 98 01/01/17 16:13 01/01/17 16:13 01/01/17 16:13 01/01/17 16:13 01/01/17 16:13 - Laboratory Result Diagrams: 01/01/17 16:40 01/01/17 16:40 Laboratory results interpreted by me: 01/01/17 01/01/17 01/01/17 16:40 16:40 16:40 ESR 93 H Glucose 119 H Uric Acid Total Protein 6.0 L Albumin 2.7 L Urine Protein >=500 H Urine Blood SMALL H 01/01/17 16:40 ESR Glucose Uric Acid 6.7 H Total Protein Albumin Urine Protein Urine Blood - Diagnostic Test Radiology reviewed: Image reviewed, Reports reviewed - EKG Interpretation by Me EKG shows normal: Sinus rhythm Rate: Normal Rhythm: NSR Discharge - Discharge Clinical Impression: Nephrotic syndrome Condition: Stable Disposition: HOME, SELF-CARE Instructions: Edema, Peripheral ([facility]) Additional Instructions: Follow-up with inclusion specialist, Dr. Britton as soon as you can make an appointment to be seen. Approximately 5 days prior to that evaluation have outpatient blood work done so that he can have the results. Take Lasix daily as prescribed. Return to the emergency room immediately if symptoms worsen or any additional concerns. Prescriptions: Furosemide [Lasix 20 mg Tablet] 20 mg PO QAM #30 tablet Forms: Follow-Up Laboratory Testing Referrals: Simba BRITTON MD [ACTIVE STAFF] - Follow up as needed
[2017-01-01] MEDS ORDERED: INDOMETHACIN 50 MG CAPSULE PO ONE (18:13)
[2017-01-01] MEDS ORDERED: FUROSEMIDE 20 MG TABLET PO ONE (18:36)
[2017-01-01 19:04] VITALS: BP 147/99
== END 2017-01-01 19:05 | disposition home or self-care (01) ==
LOC: ER 16:04
DX: N04.9 Nephrotic syndrome with unspecified morphologic changes (principal); R06.02 Shortness of breath; R60.9 Edema, unspecified; F17.200 Nicotine dependence, unspecified, uncomplicated
CPT/HCPCS: 93005; 99285; 36415; 84443; 84550; 85025; 85652; 81025; 80053; 81001; 84484; 83880; 71020; 93010; J3490 ×2

== ENCOUNTER → 2017-01-13 | Outpatient (CLI) | payer MEDICAID ==
[2017-01-13 14:58] LABS: ABSOLUTE EOSINOPHILS # (AUTO) 0.1 10^3/uL (0.0-0.6); ABSOLUTE LYMPHOCYTES (AUTO) 1.8 10^3/uL (0.5-4.7); ABSOLUTE MONOCYTES (AUTO) 0.4 10^3/uL (0.1-1.4); ABSOLUTE NEUT (AUTO) 2.4 10^3/uL (1.7-8.2); BASOPHILS % (AUTO) 0.6 % (0-2); EOSINOPHILS % (AUTO) 1.1 % (0-6); HEMATOCRIT 37.2 % (36.0-47.0); HEMOGLOBIN 12.6 g/dL (12.0-15.5); HGB HCT DIFFERENCE 0.6; LYMPHOCYTES % (AUTO) 37.9 % (13-45); MEAN CORPUSCULAR HEMOGLOBIN 29.6 pg (27.0-33.4); MEAN CORPUSCULAR HGB CONC 33.8 g/dL (32.0-36.0); MEAN CORPUSCULAR VOLUME 88 fl (80-97); RED BLOOD COUNT 4.25 10^6/uL (3.72-5.28); RED CELL DISTRIBUTION WIDTH 13.1 % (11.5-14.0); SEGMENTED NEUTROPHILS % (AUTO) 52.4 % (42-78); WHITE BLOOD COUNT 4.7 10^3/uL (4.0-10.5)
[2017-01-13 14:59] LABS: APPEARANCE,URINE SLIGHTLY-CLOUDY; BILIRUBIN,URINE NEGATIVE (NEGATIVE); GLUCOSE, URINE NEGATIVE (NEGATIVE); KETONES,URINE NEGATIVE (NEGATIVE); LEUKOCYTE ESTERASE,URINE TRACE (NEGATIVE); NITRITE,URINE NEGATIVE (NEGATIVE); PROTEIN,URINE >=500 mg/dL (NEGATIVE); URINE SPECIFIC GRAVITY 1.008; UROBILINOGEN,URINE NEGATIVE mg/dL (<2.0)
[2017-01-13 15:17] LABS: ALANINE AMINOTRANSFERASE 23 U/L (9-52); ALBUMIN 2.9 g/dL (3.5-5.0); ALKALINE PHOSPHATASE 79 U/L (38-126); ANION GAP 8 (5-19); ASPARTATE AMINO TRANSFERASE 17 U/L (14-36); BILIRUBIN,DIRECT 0.3 mg/dL (0.0-0.4); BILIRUBIN,TOTAL 0.3 mg/dL (0.2-1.3); BLOOD UREA NITROGEN 11 mg/dL (7-20); CALCIUM 8.7 mg/dL (8.4-10.2); CARBON DIOXIDE 26 mmol/L (22-30); CHLORIDE 105 mmol/L (98-107); CREATININE RESULT 0.58 mg/dL (0.52-1.25); GLUCOSE 85 mg/dL (75-110); POTASSIUM 4.1 mmol/L (3.6-5.0); SODIUM 138.7 mmol/L (137-145); TOTAL PROTEIN 6.5 g/dL (6.3-8.2)
[2017-01-13 15:20] LABS: URINE CREATININE 61.3 mg/dL (16-327)
[2017-01-13 15:26] LABS: URINE PROTEIN 380.8 mg/dL (<12)
[2017-01-13 15:58] LABS: ADD HIVPANEL? NO; HIV (1 AND 2) ANTIBODY NEGATIVE (NEGATIVE)
[2017-01-15 14:15] LABS: COMPLEMENT TOTAL (CH50) >60 U/mL (42-60)
[2017-01-15 17:37] LABS: ANTIPROTEINASE 3 (PR-3) AB <3.5 U/mL (0.0-3.5); CYTOPLASMIC (C-ANCA) <1:20 titer (Neg:<1:20)
== END ==
LOC: OD 13:33
PROVIDERS: ATTEND Emergency Medicine
DX: N04.9 Nephrotic syndrome with unspecified morphologic changes (principal); R60.9 Edema, unspecified
CPT/HCPCS: 36415; 80053; 80074; 81001; 82570; 83516; 84156; 85025; 86038; 86162; 86225; 86256; 86701

== ENCOUNTER → 2017-01-30 | Outpatient (CLI) | payer MEDICAID ==
--- NOTE | 2017-01-30 15:08 | WOMENS IMAGING REPORT ---
EXAM DESCRIPTION: RETROPERITONEAL U/S COMPLETED DATE/TIME: 01/30/2017 2:01 pm REASON FOR STUDY: PROTEINURIA; R80.9 R80.9 PROTEINURIA, UNSPECIFIED R31.9 HEMATURIA, UNSPECIFIED N 04.9 NEPHROTIC SYNDROME WITH UNSPECIFIED MORPHOLOGIC CHANGE COMPARISON: 05/19/2015. TECHNIQUE: Dynamic and static grayscale images acquired of the kidneys and bladder and recorded on P ACS. Additional selected color Doppler and spectral images recorded. LIMITATIONS: Body habitus. FINDINGS: RIGHT KIDNEY: Normal size. Normal echogenicity. No solid or suspicious masses. No h ydronephrosis. No calcifications. LEFT KIDNEY: Normal size. Normal echogenicity. No solid or suspicious masses. No hydronephrosi s. No calcifications. BLADDER: No masses. OTHER FINDINGS: No other significant finding. IMPRESSION: NORMAL RENAL AND BLADDER ULTRASOUND. TECHNICAL DOCUMENTATION: JOB ID: [id number] [employer]- All Rights Reserved
== END ==
LOC: WI 13:19
PROVIDERS: ATTEND Internal Medicine Nephrology
DX: R80.9 Proteinuria, unspecified (principal); R31.9 Hematuria, unspecified; I10 Essential (primary) hypertension
CPT/HCPCS: 76770

== ENCOUNTER → 2017-02-06 | Outpatient (CLI) | payer MEDICAID ==
[2017-02-06 11:08] LABS: ABSOLUTE EOSINOPHILS # (AUTO) 0.1 10^3/uL (0.0-0.6); ABSOLUTE LYMPHOCYTES (AUTO) 1.5 10^3/uL (0.5-4.7); ABSOLUTE MONOCYTES (AUTO) 0.3 10^3/uL (0.1-1.4); ABSOLUTE NEUT (AUTO) 2.2 10^3/uL (1.7-8.2); BASOPHILS % (AUTO) 0.5 % (0-2); EOSINOPHILS % (AUTO) 1.4 % (0-6); HEMATOCRIT 40.2 % (36.0-47.0); HEMOGLOBIN 13.4 g/dL (12.0-15.5); LYMPHOCYTES % (AUTO) 36.6 % (13-45); MEAN CORPUSCULAR HEMOGLOBIN 29.3 pg (27.0-33.4); MEAN CORPUSCULAR HGB CONC 33.2 g/dL (32.0-36.0); MEAN CORPUSCULAR VOLUME 88 fl (80-97); MONOCYTES % (AUTO) 8.2 % (3-13); RED BLOOD COUNT 4.56 10^6/uL (3.72-5.28); RED CELL DISTRIBUTION WIDTH 13.1 % (11.5-14.0); SEGMENTED NEUTROPHILS % (AUTO) 53.3 % (42-78); WHITE BLOOD COUNT 4.1 10^3/uL (4.0-10.5)
[2017-02-06 11:14] LABS: APPEARANCE,URINE SLIGHTLY-CLOUDY; BILIRUBIN,URINE NEGATIVE (NEGATIVE); GLUCOSE, URINE NEGATIVE (NEGATIVE); KETONES,URINE NEGATIVE (NEGATIVE); LEUKOCYTE ESTERASE,URINE SMALL (NEGATIVE); NITRITE,URINE NEGATIVE (NEGATIVE); PROTEIN,URINE >=500 mg/dL (NEGATIVE); URINE SPECIFIC GRAVITY 1.018; UROBILINOGEN,URINE NEGATIVE mg/dL (<2.0)
[2017-02-06 11:39] LABS: ALANINE AMINOTRANSFERASE 21 U/L (9-52); ALBUMIN 3.3 g/dL (3.5-5.0); ALKALINE PHOSPHATASE 84 U/L (38-126); ANION GAP 8 (5-19); ASPARTATE AMINO TRANSFERASE 18 U/L (14-36); BILIRUBIN,DIRECT 0.3 mg/dL (0.0-0.4); BILIRUBIN,TOTAL 0.4 mg/dL (0.2-1.3); BLOOD UREA NITROGEN 12 mg/dL (7-20); CALCIUM 9.1 mg/dL (8.4-10.2); CARBON DIOXIDE 28 mmol/L (22-30); CHLORIDE 103 mmol/L (98-107); CHOLESTEROL 213.72 mg/dL (0-200); CREATININE RESULT 0.62 mg/dL (0.52-1.25); Direct HDL 40 mg/dL (>40); GLUCOSE 96 mg/dL (75-110); POTASSIUM 4.7 mmol/L (3.6-5.0); SODIUM 139.4 mmol/L (137-145); TOTAL PROTEIN 6.9 g/dL (6.3-8.2); TRIGLYCERIDES 271 mg/dL (<150)
[2017-02-06 11:51] LABS: DIRECT LDL 125 mg/dL (<100)
[2017-02-06 11:53] LABS: URINE CREATININE 132.7 mg/dL (16-327)
[2017-02-06 12:09] LABS: ADD HIVPANEL? NO; HIV (1 AND 2) ANTIBODY NEGATIVE (NEGATIVE)
[2017-02-06 12:12] LABS: VLDL CHOLESTEROL 54.2 mg/dL (10-31)
[2017-02-06 12:24] LABS: URINE PROTEIN 758.8 mg/dL (<12)
[2017-02-07 07:42] LABS: COMPLEMENT C4 34 mg/dL (14-44)
[2017-02-07 10:26] LABS: COMPLEMENT C3 224 mg/dL (82-167)
[2017-02-07 10:27] LABS: COMPLEMENT TOTAL (CH50) >60 U/mL (42-60)
[2017-02-08 12:00] LABS: DNA DOUBLE STRAND ANTIBODY 1 IU/mL (0-9)
[2017-02-10 18:37] LABS: ANTIPROTEINASE 3 (PR-3) AB <3.5 U/mL (0.0-3.5); CYTOPLASMIC (C-ANCA) <1:20 titer (Neg:<1:20)
== END ==
LOC: OD 09:22
PROVIDERS: ATTEND Internal Medicine Nephrology
DX: R80.9 Proteinuria, unspecified (principal); R31.9 Hematuria, unspecified; R60.9 Edema, unspecified; I10 Essential (primary) hypertension
CPT/HCPCS: 36415; 80053; 80061; 81001; 82570; 82607; 83516; 84156; 84443; 85025; 86038; 86160; 86162; 86225; 86256; 86701

== ENCOUNTER → 2017-03-11 | Day surgery (SDC) | payer MEDICAID ==
[~2017-03-11] MED LIST: FENTANYL CITRATE INJ/PF 100 MCG/2 ML AMPUL ONE; MIDAZOLAM 2 MG/2 ML INJ ONE
[2017-03-11 06:47] LABS: HEMATOCRIT 36.8 % (36.0-47.0); HEMOGLOBIN 12.5 g/dL (12.0-15.5); HGB HCT DIFFERENCE 0.7; MEAN CORPUSCULAR HEMOGLOBIN 29.8 pg (27.0-33.4); MEAN CORPUSCULAR HGB CONC 33.8 g/dL (32.0-36.0); MEAN CORPUSCULAR VOLUME 88 fl (80-97); RED BLOOD COUNT 4.17 10^6/uL (3.72-5.28); RED CELL DISTRIBUTION WIDTH 13.1 % (11.5-14.0); WHITE BLOOD COUNT 5.3 10^3/uL (4.0-10.5)
[2017-03-11 06:49] LABS: PARTIAL THROMBOPLASTIN TIME 31.9 SEC (23.5-35.8)
[2017-03-11 06:53] LABS: BLOOD UREA NITROGEN 12 mg/dL (7-20); CREATININE RESULT 0.61 mg/dL (0.52-1.25)
[2017-03-11 12:17] VITALS: BP 133/79
--- NOTE | 2017-03-11 15:44 | RADIOLOGY REPORT (SQ) ---
EXAM DESCRIPTION: CT BIOPSY RENAL; CT NEEDLE PLACEMENT COMPLETED DATE/TIME: 03/11/2017 9:43 am; 03/11/2017 9:42 am REASON FOR STUDY: PROTENURIA; PROTENURIA, RENAL BX N04.9 NEPHROTIC SYNDROME WITH UNSPECIFIED MORPHO LOGIC CHANGE R80.1 PERSISTENT PROTEINURIA, UNSPECIFIED R31.9 HEMATURIA, UNSPECIFIED COMPARISON: Bilateral renal ultrasound 01/30/2017 CT abdomen pelvis 09/29/2016 RADIATION DOSE: Up-to-date CT equipment and radiation dose reduction techniques were employed. CTDIv ol: 4.0 - 20.3 mGy. DLP: 2456 mGy-cm. mGy. LIMITATIONS: None. PROCEDURE: Procedure was discussed with the patient and the patient agreed to the procedure. Preliminary CT scanning to localize the biopsy site was performed. A site was marked on the left low er pole kidney and time out was performed. Procedure was performed using CT fluoroscopy. Total expos ure time: 2.[address] fluoro was insufficient for soft tissue detail. Helical cereal s cans along the lower pole kidney were performed. Accumulated dose 16 mGy. IV sedation was administered and physician direction by the registered nurse using 1 milligrams of Ve rsed and 75 micrograms of fentanyl. Physiologic monitoring was provided before, during, and after sed ation. The total sedation time was 30 minutes. Documentation face to face time, the performing proceduralist spent monitoring the patient: 25minutes . After sterile skin prep with ChloraPrep, local lidocaine for skin and deep tissue anesthesia, the lef t lower pole kidney was localized. A coaxial 18 gauge needle was used to obtain 5 cores of tissue fro m the lower pole left kidney. The biopsy tract was embolized with Gelfoam. All CT scanners at this facility use dose modulation, iterative reconstruction, and/or weight based d osing when appropriate to reduce radiation dose to as low as reasonably achievable (ALARA). [facility]: Dose Right [facility]: CareDose [facility]: Dose Right [facility]: Teradose 4D [facility]: Identia FINDINGS: There were no immediate complications. Specimen was carried to cytology on sterile saline gauze and submitted to the clay temperer for processing. Pathology is pending at the time of dict ation. IMPRESSION: CT GUIDED LEFT KIDNEY CORTICAL BIOPSY. NO IMMEDIATE COMPLICATIONS. PATHOLOGY PENDING. COMMENT: Patient medication list reviewed:Yes- Quality ID# [id number]:Eligible professional attests to docu menting in the medical record they obtained, updated, or reviewed the patient's current medications.. TECHNICAL DOCUMENTATION: JOB ID: [id number] Quality ID #[id number]: Final reports for procedures using fluoroscopy that document radiation exposure emeka chris, or exposure time and number of fluorographic images (if radiation exposure indices are not avail able) Quality ID # [id number]: Final reports with documentation of one or more dose reduction techniques (e.g., Au tomated exposure control, adjustment of the mA and/or kV according to patient size, use of iterative reconstruction technique) 2010 [employer]- All Rights Reserved
--- NOTE | 2017-03-11 15:44 | RADIOLOGY REPORT (SQ) ---
EXAM DESCRIPTION: CT BIOPSY RENAL; CT NEEDLE PLACEMENT COMPLETED DATE/TIME: 03/11/2017 9:43 am; 03/11/2017 9:42 am REASON FOR STUDY: PROTENURIA; PROTENURIA, RENAL BX N04.9 NEPHROTIC SYNDROME WITH UNSPECIFIED MORPHO LOGIC CHANGE R80.1 PERSISTENT PROTEINURIA, UNSPECIFIED R31.9 HEMATURIA, UNSPECIFIED COMPARISON: Bilateral renal ultrasound 01/30/2017 CT abdomen pelvis 09/29/2016 RADIATION DOSE: Up-to-date CT equipment and radiation dose reduction techniques were employed. CTDIv ol: 4.0 - 20.3 mGy. DLP: 2456 mGy-cm. mGy. LIMITATIONS: None. PROCEDURE: Procedure was discussed with the patient and the patient agreed to the procedure. Preliminary CT scanning to localize the biopsy site was performed. A site was marked on the left low er pole kidney and time out was performed. Procedure was performed using CT fluoroscopy. Total expos ure time: 2.[address] fluoro was insufficient for soft tissue detail. Helical cereal s cans along the lower pole kidney were performed. Accumulated dose 16 mGy. IV sedation was administered and physician direction by the registered nurse using 1 milligrams of Ve rsed and 75 micrograms of fentanyl. Physiologic monitoring was provided before, during, and after sed ation. The total sedation time was 30 minutes. Documentation face to face time, the performing proceduralist spent monitoring the patient: 25minutes . After sterile skin prep with ChloraPrep, local lidocaine for skin and deep tissue anesthesia, the lef t lower pole kidney was localized. A coaxial 18 gauge needle was used to obtain 5 cores of tissue fro m the lower pole left kidney. The biopsy tract was embolized with Gelfoam. All CT scanners at this facility use dose modulation, iterative reconstruction, and/or weight based d osing when appropriate to reduce radiation dose to as low as reasonably achievable (ALARA). [facility]: Dose Right [facility]: CareDose [facility]: Dose Right [facility]: Teradose 4D [facility]: [employer] FINDINGS: There were no immediate complications. Specimen was carried to cytology on sterile saline gauze and submitted to the magnetizer for processing. Pathology is pending at the time of dict ation. IMPRESSION: CT GUIDED LEFT KIDNEY CORTICAL BIOPSY. NO IMMEDIATE COMPLICATIONS. PATHOLOGY PENDING. COMMENT: Patient medication list reviewed:Yes- Quality ID# [id number]:Eligible professional attests to docu menting in the medical record they obtained, updated, or reviewed the patient's current medications.. TECHNICAL DOCUMENTATION: JOB ID: [id number] Quality ID #[id number]: Final reports for procedures using fluoroscopy that document radiation exposure emeka chris, or exposure time and number of fluorographic images (if radiation exposure indices are not avail able) Quality ID # [id number]: Final reports with documentation of one or more dose reduction techniques (e.g., Au tomated exposure control, adjustment of the mA and/or kV according to patient size, use of iterative reconstruction technique) 2010 [employer]- All Rights Reserved
== END ==
LOC: RAD 05:45
PROVIDERS: ATTEND Internal Medicine Nephrology
PROC: 0TB43ZX Excision of Left Kidney Pelvis, Percutaneous Approach, Diagnostic (ICD-10-PCS; principal; 2017-03-11)
DX: N04.9 Nephrotic syndrome with unspecified morphologic changes (principal); R80.1 Persistent proteinuria, unspecified; R31.9 Hematuria, unspecified; Z79.899 Other long term (current) drug therapy; F17.210 Nicotine dependence, cigarettes, uncomplicated; N05.9 Unspecified nephritic syndrome with unspecified morphologic changes; I12.9 Hypertensive chronic kidney disease with stage 1 through stage 4 chronic kidney disease, or unspecified chronic kidney disease; N18.2 Chronic kidney disease, stage 2 (mild)
CPT/HCPCS: 36415; 84520; 82565; 85027; 85610; 85730; 88346; 88348 ×2; 88313 ×2; 77012; 50200; J2250; J3010

== ENCOUNTER → 2017-03-14 | Outpatient (CLI) | payer MEDICAID ==
[2017-03-14 10:54] LABS: HEMATOCRIT 37.5 % (36.0-47.0); HEMOGLOBIN 12.8 g/dL (12.0-15.5); HGB HCT DIFFERENCE 0.9; MEAN CORPUSCULAR HEMOGLOBIN 30.2 pg (27.0-33.4); MEAN CORPUSCULAR HGB CONC 34.2 g/dL (32.0-36.0); MEAN CORPUSCULAR VOLUME 88 fl (80-97); RED BLOOD COUNT 4.24 10^6/uL (3.72-5.28); RED CELL DISTRIBUTION WIDTH 13.1 % (11.5-14.0)
[2017-03-14 11:18] LABS: APPEARANCE,URINE SLIGHTLY-CLOUDY; BILIRUBIN,URINE NEGATIVE (NEGATIVE); GLUCOSE, URINE NEGATIVE (NEGATIVE); KETONES,URINE NEGATIVE (NEGATIVE); LEUKOCYTE ESTERASE,URINE NEGATIVE (NEGATIVE); NITRITE,URINE NEGATIVE (NEGATIVE); PROTEIN,URINE >=500 mg/dL (NEGATIVE); URINE SPECIFIC GRAVITY 1.028; UROBILINOGEN,URINE NEGATIVE mg/dL (<2.0)
[2017-03-14 11:31] LABS: ANION GAP 9 (5-19); BLOOD UREA NITROGEN 10 mg/dL (7-20); CARBON DIOXIDE 30 mmol/L (22-30); CHLORIDE 104 mmol/L (98-107); GLUCOSE 131 mg/dL (75-110); SODIUM 143.2 mmol/L (137-145)
[2017-03-14 11:50] LABS: URINE CREATININE 201.7 mg/dL (16-327)
[2017-03-14 12:25] LABS: URINE PROTEIN 2651.4 mg/dL (<12)
== END ==
LOC: OD 10:05
PROVIDERS: ATTEND Internal Medicine Nephrology
DX: R50.9 Fever, unspecified (principal); R31.9 Hematuria, unspecified; I10 Essential (primary) hypertension
CPT/HCPCS: 36415; 80048; 81001; 82570; 84156; 85027

== ENCOUNTER → 2017-05-19 | Outpatient (CLI) | payer MEDICAID ==
[2017-05-19 16:04] LABS: APPEARANCE,URINE CLOUDY; BILIRUBIN,URINE NEGATIVE (NEGATIVE); GLUCOSE, URINE NEGATIVE (NEGATIVE); KETONES,URINE NEGATIVE (NEGATIVE); LEUKOCYTE ESTERASE,URINE MODERATE (NEGATIVE); NITRITE,URINE NEGATIVE (NEGATIVE); PROTEIN,URINE >=500 mg/dL (NEGATIVE); URINE SPECIFIC GRAVITY 1.022; UROBILINOGEN,URINE NEGATIVE mg/dL (<2.0)
[2017-05-19 16:11] LABS: URINE CREATININE 140.8 mg/dL (16-327)
[2017-05-19 16:28] LABS: HEMATOCRIT 37.7 % (36.0-47.0); HEMOGLOBIN 12.3 g/dL (12.0-15.5); HGB HCT DIFFERENCE -0.8; MEAN CORPUSCULAR HGB CONC 32.7 g/dL (32.0-36.0); MEAN CORPUSCULAR VOLUME 89 fl (80-97); RED BLOOD COUNT 4.26 10^6/uL (3.72-5.28); RED CELL DISTRIBUTION WIDTH 13.8 % (11.5-14.0); WHITE BLOOD COUNT 6.2 10^3/uL (4.0-10.5)
[2017-05-19 16:42] LABS: URINE PROTEIN 1267.5 mg/dL (<12)
[2017-05-19 16:50] LABS: ALANINE AMINOTRANSFERASE 33 U/L (9-52); ALBUMIN 2.5 g/dL (3.5-5.0); ALKALINE PHOSPHATASE 58 U/L (38-126); ANION GAP 5 (5-19); ASPARTATE AMINO TRANSFERASE 18 U/L (14-36); BILIRUBIN,DIRECT 0.2 mg/dL (0.0-0.4); BILIRUBIN,TOTAL 0.2 mg/dL (0.2-1.3); BLOOD UREA NITROGEN 12 mg/dL (7-20); CALCIUM 8.8 mg/dL (8.4-10.2); CARBON DIOXIDE 29 mmol/L (22-30); CHLORIDE 106 mmol/L (98-107); CREATININE RESULT 0.66 mg/dL (0.52-1.25); GLUCOSE 83 mg/dL (75-110); TOTAL PROTEIN 5.6 g/dL (6.3-8.2)
== END ==
LOC: OD 15:09
PROVIDERS: ATTEND Internal Medicine Nephrology
DX: N04.9 Nephrotic syndrome with unspecified morphologic changes (principal); R50.9 Fever, unspecified; I10 Essential (primary) hypertension
CPT/HCPCS: 36415; 80053; 81001; 82570; 84156; 85027

== ENCOUNTER → 2017-06-17 | Outpatient (CLI) | payer MEDICAID ==
[2017-06-17 15:14] LABS: APPEARANCE,URINE CLEAR; BILIRUBIN,URINE NEGATIVE (NEGATIVE); COLOR,URINE YELLOW; GLUCOSE, URINE NEGATIVE (NEGATIVE); KETONES,URINE NEGATIVE (NEGATIVE); LEUKOCYTE ESTERASE,URINE NEGATIVE (NEGATIVE); NITRITE,URINE NEGATIVE (NEGATIVE); PROTEIN,URINE >=500 mg/dL (NEGATIVE); URINE SPECIFIC GRAVITY 1.016; UROBILINOGEN,URINE NEGATIVE mg/dL (<2.0)
[2017-06-17 15:28] LABS: ANION GAP 6 (5-19); BLOOD UREA NITROGEN 14 mg/dL (7-20); CALCIUM 9.2 mg/dL (8.4-10.2); CARBON DIOXIDE 30 mmol/L (22-30); CHLORIDE 104 mmol/L (98-107); GLUCOSE 102 mg/dL (75-110); POTASSIUM 3.9 mmol/L (3.6-5.0); SODIUM 140.2 mmol/L (137-145)
[2017-06-17 15:33] LABS: URINE CREATININE 95.6 mg/dL (16-327)
[2017-06-17 16:08] LABS: UR PRO/CREAT RATIO RESULT 9.2 mg/mg (0.0-0.2)
[2017-06-17 16:12] LABS: URINE PROTEIN 874.9 mg/dL (<12)
== END ==
LOC: OD 14:04
PROVIDERS: ATTEND Internal Medicine Nephrology
DX: N04.9 Nephrotic syndrome with unspecified morphologic changes (principal); N00.8 Acute nephritic syndrome with other morphologic changes; I10 Essential (primary) hypertension
CPT/HCPCS: 36415; 80048; 81001; 82040; 82570; 84156

== ENCOUNTER 2017-06-26 05:48 | Emergency (ER) | payer MEDICAID ==
[2017-06-26 07:54] LABS: ANION GAP 8 (5-19); BLOOD UREA NITROGEN 14 mg/dL (7-20); CALCIUM 9.3 mg/dL (8.4-10.2); CARBON DIOXIDE 28 mmol/L (22-30); CHLORIDE 104 mmol/L (98-107); GLUCOSE 95 mg/dL (75-110); POTASSIUM 4.1 mmol/L (3.6-5.0); SODIUM 140.2 mmol/L (137-145)
[2017-06-26 10:11] VITALS: BP 118/73
--- NOTE | 2017-06-26 10:34 | ER Document Report ---
ED General - General Chief Complaint: Leg Pain Stated Complaint: LEG,FOOT PAIN Time Seen by Provider: 06/26/17 06:41 Mode of Arrival: Ambulatory Information source: Patient TRAVEL OUTSIDE OF THE [place] IN LAST 30 DAYS: No - HPI Patient complains to provider of: Cramp to back of upper leg last night Onset: Other Onset/Duration: Gradual Quality of pain: Cramping Severity: Moderate Associated symptoms: None Exacerbated by: Denies Relieved by: Denies, Other - She attempted an eslf-rhi-walprww homeopathic medication that states on the packages for leg cramps Similar symptoms previously: No Recently seen / treated by doctor: No - Related Data Allergies/Adverse Reactions: No Known Allergies Allergy (Verified 01/01/17 16:23) Past Medical History - General Information source: Patient - Social History Smoking Status: Unknown if Ever Smoked Chew tobacco use (# tins/day): No Frequency of alcohol use: None Drug Abuse: Bath salts Family History: None Patient has suicidal ideation: No Patient has homicidal ideation: No - Past Medical History Cardiac Medical History: Reports: Hx Hypertension Denies: Hx Coronary Artery Disease, Hx Heart Attack Pulmonary Medical History: Denies: Hx Asthma, Hx Bronchitis, Hx COPD, Hx Pneumonia Neurological Medical History: Reports: Hx Migraine. Denies: Hx Cerebrovascular Accident, Hx Seizures Renal/ Medical History: Reports: Hx Kidney Stones. Denies: Hx Peritoneal Dialysis GI Medical History: Reports: Hx Gastroesophageal Reflux Disease Musculoskeltal Medical History: Denies Hx Arthritis, Reports Hx Musculoskeletal Trauma Skin Medical History: Reports Hx Cellulitis, Reports Hx Eczema Psychiatric Medical History: Reports: Hx Anxiety, Hx Bipolar Disorder, Hx Depression - Immunizations Hx Diphtheria, Pertussis, Tetanus Vaccination: No Hx Pneumococcal Vaccination: 03/09/12 Review of Systems - Review of Systems Constitutional: No symptoms reported EENT: No symptoms reported Cardiovascular: No symptoms reported Respiratory: No symptoms reported Gastrointestinal: No symptoms reported Genitourinary: No symptoms reported Female Genitourinary: No symptoms reported Musculoskeletal: See HPI Skin: No symptoms reported Hematologic/Lymphatic: No symptoms reported Neurological/Psychological: No symptoms reported Physical Exam - Vital signs Vitals: Temp Pulse Resp BP Pulse Ox 97.8 F 81 16 118/78 96 06/26/17 05:53 06/26/17 05:53 06/26/17 05:53 06/26/17 05:53 06/26/17 05:53 - Notes Notes: PHYSICAL EXAMINATION: GENERAL: Well-appearing, well-nourished and in no acute distress. Morbidly obese. HEAD: Atraumatic, normocephalic. EYES: Pupils equal round and reactive to light, extraocular movements intact, conjunctiva are normal. ENT: Nares patent, oropharynx clear without exudates. Moist mucous membranes. NECK: Normal range of motion, supple without lymphadenopathy LUNGS: Breath sounds clear to auscultation bilaterally and equal. No wheezes rales or rhonchi. HEART: Regular rate and rhythm without murmurs ABDOMEN: Obese, soft, nontender, nondistended abdomen. No guarding, no rebound. No masses appreciated. Female : deferred Musculoskeletal: Normal range of motion, no pitting or edema. No cyanosis. Mild tenderness to the left calf. There is no swelling. She is bilateral lower extremities are neurovascular intact. NEUROLOGICAL: Cranial nerves grossly intact. Normal speech, normal gait. Normal sensory, motor exams PSYCH: Normal mood, normal affect. SKIN: Warm, Dry, normal turgor, no rashes or lesions noted. Course - Vital Signs Vital signs: Temp Pulse Resp BP Pulse Ox 98.1 F 79 19 118/73 97 06/26/17 09:59 06/26/17 09:59 06/26/17 09:59 06/26/17 09:59 06/26/17 09:59 - Laboratory Result Diagrams: 06/26/17 07:22 - Diagnostic Test Radiology results interpreted by me: 06/26/17 10:39 As per the gem technician the ultrasound for left lower extremity DVT is negative Discharge - Discharge Clinical Impression: Cramp in lower leg Condition: Stable Disposition: HOME, SELF-CARE Instructions: Leg Cramps ([facility]) Additional Instructions: Follow-up with your primary medical doctor as needed. Your potassium was checked today and it was normal as well as a negative ultrasound of your left lower extremity for clot.
--- NOTE | 2017-06-26 12:45 | XCELERA REPORT ---
[address] [address] Lower Extremity Venous Evaluation Name: MONTSERRAT ALSTON Age: 31 yrs Gender: Female : 1985 Patient Status: Emergency Patient Location: ER Study Date: 06/26/2017 08:40 AM Procedure: Color flow and duplex imaging of the veins of the left lower extremity as well as the right Common Femoral vein. Reason For Study: lle pain Ordering Physician: MERCED EDWARDS Performed By: Jayna Vieira Right Sided Venous Evaluation The right common femoral vein is fully compressible. Spontaneous and phasic flow is present in the right common femoral vein. Left Sided Venous Evaluation Normal vessel filling wall to wall, compression and augmentation as well as Colour flow down to the infrageniculate veins. Interpretation Summary No duplex evidence of DVT or obstruction in the left lower extremity nor in the right Common Femoral vein. : MERCED EDWARDS > Carlos Alston
== END 2017-06-26 10:34 | disposition home or self-care (01) ==
LOC: ER 05:48
DX: R25.2 Cramp and spasm (principal); M79.605 Pain in left leg; I10 Essential (primary) hypertension; Z87.442 Personal history of urinary calculi
CPT/HCPCS: 36415; 80048; 93971; 99284

== ENCOUNTER → 2017-07-17 | Outpatient (CLI) | payer MEDICAID ==
[2017-07-17 13:02] LABS: APPEARANCE,URINE SLIGHTLY-CLOUDY; BILIRUBIN,URINE NEGATIVE (NEGATIVE); COLOR,URINE YELLOW; GLUCOSE, URINE NEGATIVE (NEGATIVE); KETONES,URINE NEGATIVE (NEGATIVE); LEUKOCYTE ESTERASE,URINE TRACE (NEGATIVE); NITRITE,URINE NEGATIVE (NEGATIVE); PROTEIN,URINE >=500 mg/dL (NEGATIVE); URINE SPECIFIC GRAVITY 1.011; UROBILINOGEN,URINE NEGATIVE mg/dL (<2.0)
[2017-07-17 13:05] LABS: HEMATOCRIT 39.3 % (36.0-47.0); HEMOGLOBIN 13.1 g/dL (12.0-15.5); MEAN CORPUSCULAR HEMOGLOBIN 29.2 pg (27.0-33.4); MEAN CORPUSCULAR HGB CONC 33.3 g/dL (32.0-36.0); MEAN CORPUSCULAR VOLUME 88 fl (80-97); PLATELET COUNT 388 10^3/uL (150-450); RED BLOOD COUNT 4.49 10^6/uL (3.72-5.28); RED CELL DISTRIBUTION WIDTH 13.4 % (11.5-14.0); WHITE BLOOD COUNT 4.8 10^3/uL (4.0-10.5)
[2017-07-17 13:17] LABS: URINE CREATININE 66.6 mg/dL (16-327)
[2017-07-17 13:31] LABS: URINE PROTEIN 400.7 mg/dL (<12)
[2017-07-17 13:33] LABS: ALANINE AMINOTRANSFERASE 21 U/L (9-52); ALBUMIN 2.9 g/dL (3.5-5.0); ALKALINE PHOSPHATASE 71 U/L (38-126); ANION GAP 5 (5-19); ASPARTATE AMINO TRANSFERASE 18 U/L (14-36); BILIRUBIN,DIRECT 0.4 mg/dL (0.0-0.4); BILIRUBIN,TOTAL 0.4 mg/dL (0.2-1.3); BLOOD UREA NITROGEN 11 mg/dL (7-20); CALCIUM 9.6 mg/dL (8.4-10.2); CARBON DIOXIDE 30 mmol/L (22-30); CHLORIDE 105 mmol/L (98-107); CHOLESTEROL 186.63 mg/dL (0-200); GLUCOSE 83 mg/dL (75-110); POTASSIUM 4.3 mmol/L (3.6-5.0); SODIUM 139.8 mmol/L (137-145); TOTAL PROTEIN 6.1 g/dL (6.3-8.2); TRIGLYCERIDES 199 mg/dL (<150)
[2017-07-17 13:48] LABS: DIRECT LDL 121 mg/dL (<100)
[2017-07-17 13:52] LABS: VLDL CHOLESTEROL 39.8 mg/dL (10-31)
== END ==
LOC: OD 12:09
PROVIDERS: ATTEND Internal Medicine Nephrology
DX: N04.9 Nephrotic syndrome with unspecified morphologic changes (principal); R80.9 Proteinuria, unspecified; E87.5 Hyperkalemia
CPT/HCPCS: 36415; 80053; 80061; 81001; 82570; 84156; 85027

== ENCOUNTER → 2017-10-14 | Outpatient (CLI) | payer MEDICAID ==
[2017-10-14 13:30] LABS: HEMATOCRIT 40.2 % (36.0-47.0); HEMOGLOBIN 13.3 g/dL (12.0-15.5); MEAN CORPUSCULAR HGB CONC 33.1 g/dL (32.0-36.0); MEAN CORPUSCULAR VOLUME 88 fl (80-97); PLATELET COUNT 413 10^3/uL (150-450); RED BLOOD COUNT 4.58 10^6/uL (3.72-5.28); RED CELL DISTRIBUTION WIDTH 13.3 % (11.5-14.0); WHITE BLOOD COUNT 4.4 10^3/uL (4.0-10.5)
[2017-10-14 13:31] LABS: APPEARANCE,URINE CLEAR; BILIRUBIN,URINE NEGATIVE (NEGATIVE); COLOR,URINE STRAW; GLUCOSE, URINE NEGATIVE (NEGATIVE); KETONES,URINE NEGATIVE (NEGATIVE); LEUKOCYTE ESTERASE,URINE TRACE (NEGATIVE); NITRITE,URINE NEGATIVE (NEGATIVE); PROTEIN,URINE >=500 mg/dL (NEGATIVE); URINE SPECIFIC GRAVITY 1.009; UROBILINOGEN,URINE NEGATIVE mg/dL (<2.0)
[2017-10-14 13:57] LABS: URINE CREATININE 37.3 mg/dL (16-327)
[2017-10-14 14:02] LABS: ALANINE AMINOTRANSFERASE 24 U/L (9-52); ALBUMIN 2.9 g/dL (3.5-5.0); ALKALINE PHOSPHATASE 67 U/L (38-126); ANION GAP 9 (5-19); ASPARTATE AMINO TRANSFERASE 23 U/L (14-36); BILIRUBIN,DIRECT 0.1 mg/dL (0.0-0.4); BILIRUBIN,TOTAL 0.1 mg/dL (0.2-1.3); BLOOD UREA NITROGEN 11 mg/dL (7-20); CALCIUM 9.3 mg/dL (8.4-10.2); CARBON DIOXIDE 30 mmol/L (22-30); CHLORIDE 104 mmol/L (98-107); GLUCOSE 101 mg/dL (75-110); SODIUM 142.6 mmol/L (137-145); TOTAL PROTEIN 6.1 g/dL (6.3-8.2)
[2017-10-14 14:05] LABS: UR PRO/CREAT RATIO RESULT 8.4 mg/mg (0.0-0.2); URINE PROTEIN 313.4 mg/dL (<12)
== END ==
LOC: OD 12:36
PROVIDERS: ATTEND Internal Medicine Nephrology
DX: R80.9 Proteinuria, unspecified (principal); N04.9 Nephrotic syndrome with unspecified morphologic changes; I10 Essential (primary) hypertension
CPT/HCPCS: 36415; 80053; 81001; 82570; 84156; 85027

== ENCOUNTER → 2017-12-19 | Outpatient (CLI) | payer MEDICAID ==
[2017-12-19 16:18] LABS: HEMATOCRIT 36.6 % (36.0-47.0); HEMOGLOBIN 12.1 g/dL (12.0-15.5); MEAN CORPUSCULAR HEMOGLOBIN 29.1 pg (27.0-33.4); MEAN CORPUSCULAR HGB CONC 33.2 g/dL (32.0-36.0); MEAN CORPUSCULAR VOLUME 88 fl (80-97); PLATELET COUNT 358 10^3/uL (150-450); RED BLOOD COUNT 4.18 10^6/uL (3.72-5.28); RED CELL DISTRIBUTION WIDTH 13.2 % (11.5-14.0); WHITE BLOOD COUNT 6.6 10^3/uL (4.0-10.5)
[2017-12-19 16:38] LABS: APPEARANCE,URINE SLIGHTLY-CLOUDY; BILIRUBIN,URINE NEGATIVE (NEGATIVE); COLOR,URINE YELLOW; GLUCOSE, URINE NEGATIVE (NEGATIVE); KETONES,URINE NEGATIVE (NEGATIVE); LEUKOCYTE ESTERASE,URINE NEGATIVE (NEGATIVE); NITRITE,URINE NEGATIVE (NEGATIVE); PROTEIN,URINE >=500 mg/dL (NEGATIVE); URINE SPECIFIC GRAVITY 1.018; UROBILINOGEN,URINE NEGATIVE mg/dL (<2.0)
[2017-12-19 16:39] LABS: ANION GAP 6 (5-19); BLOOD UREA NITROGEN 14 mg/dL (7-20); CALCIUM 8.6 mg/dL (8.4-10.2); CARBON DIOXIDE 30 mmol/L (22-30); CHLORIDE 106 mmol/L (98-107); GLUCOSE 80 mg/dL (75-110); SODIUM 141.7 mmol/L (137-145)
[2017-12-19 17:36] LABS: UR PRO/CREAT RATIO RESULT 12.5 mg/mg (0.0-0.2); URINE CREATININE 108.5 mg/dL (16-327); URINE PROTEIN 1355.5 mg/dL (<12)
== END ==
LOC: OD 15:45
PROVIDERS: ATTEND Internal Medicine Nephrology
DX: R80.9 Proteinuria, unspecified (principal); I10 Essential (primary) hypertension; N04.9 Nephrotic syndrome with unspecified morphologic changes
CPT/HCPCS: 36415; 80048; 81001; 82570; 83735; 84156; 85027

== ENCOUNTER → 2018-03-13 | Outpatient (CLI) | payer MEDICAID ==
[2018-03-13 17:19] LABS: HEMATOCRIT 37.5 % (36.0-47.0); HEMOGLOBIN 12.7 g/dL (12.0-15.5); MEAN CORPUSCULAR HEMOGLOBIN 29.5 pg (27.0-33.4); MEAN CORPUSCULAR HGB CONC 33.9 g/dL (32.0-36.0); MEAN CORPUSCULAR VOLUME 87 fl (80-97); PLATELET COUNT 396 10^3/uL (150-450); RED BLOOD COUNT 4.31 10^6/uL (3.72-5.28); RED CELL DISTRIBUTION WIDTH 13.7 % (11.5-14.0); WHITE BLOOD COUNT 5.8 10^3/uL (4.0-10.5)
[2018-03-13 17:34] LABS: APPEARANCE,URINE CLEAR; BILIRUBIN,URINE NEGATIVE (NEGATIVE); COLOR,URINE STRAW; GLUCOSE, URINE NEGATIVE (NEGATIVE); KETONES,URINE NEGATIVE (NEGATIVE); LEUKOCYTE ESTERASE,URINE NEGATIVE (NEGATIVE); NITRITE,URINE NEGATIVE (NEGATIVE); PROTEIN,URINE 100 mg/dL (NEGATIVE); URINE SPECIFIC GRAVITY 1.008; UROBILINOGEN,URINE NEGATIVE mg/dL (<2.0)
[2018-03-13 17:47] LABS: ALANINE AMINOTRANSFERASE 23 U/L (9-52); ALBUMIN 2.4 g/dL (3.5-5.0); ALKALINE PHOSPHATASE 60 U/L (38-126); ASPARTATE AMINO TRANSFERASE 21 U/L (14-36); BILIRUBIN,DIRECT 0.3 mg/dL (0.0-0.4); BILIRUBIN,TOTAL 0.3 mg/dL (0.2-1.3); BLOOD UREA NITROGEN 13 mg/dL (7-20); CALCIUM 8.3 mg/dL (8.4-10.2); GLUCOSE 84 mg/dL (75-110); POTASSIUM 4.4 mmol/L (3.6-5.0); TOTAL PROTEIN 5.5 g/dL (6.3-8.2)
[2018-03-13 17:54] LABS: CARBON DIOXIDE 32 mmol/L (22-30); CHLORIDE 103 mmol/L (98-107); SODIUM 137.4 mmol/L (137-145)
[2018-03-13 17:57] LABS: ANION GAP 2 (5-19)
[2018-03-13 20:27] LABS: UR PRO/CREAT RATIO RESULT 6.1 mg/mg (0.0-0.2); URINE CREATININE 21.7 mg/dL (16-327); URINE PROTEIN 133.1 mg/dL (<12)
== END ==
LOC: OD 16:12
PROVIDERS: ATTEND Internal Medicine Nephrology
DX: N04.9 Nephrotic syndrome with unspecified morphologic changes (principal); I10 Essential (primary) hypertension; R80.9 Proteinuria, unspecified
CPT/HCPCS: 36415; 80053; 81001; 82570; 83735; 84156; 85027

== ENCOUNTER → 2018-04-10 | Outpatient (CLI) | payer MEDICAID ==
[2018-04-10 11:38] LABS: APPEARANCE,URINE SLIGHTLY-CLOUDY; BILIRUBIN,URINE NEGATIVE (NEGATIVE); COLOR,URINE YELLOW; GLUCOSE, URINE NEGATIVE (NEGATIVE); KETONES,URINE NEGATIVE (NEGATIVE); LEUKOCYTE ESTERASE,URINE TRACE (NEGATIVE); NITRITE,URINE NEGATIVE (NEGATIVE); PROTEIN,URINE >=500 mg/dL (NEGATIVE); URINE SPECIFIC GRAVITY 1.012; UROBILINOGEN,URINE NEGATIVE mg/dL (<2.0)
[2018-04-10 11:42] LABS: HEMOGLOBIN 12.6 g/dL (12.0-15.5); MEAN CORPUSCULAR HEMOGLOBIN 29.2 pg (27.0-33.4); MEAN CORPUSCULAR HGB CONC 33.1 g/dL (32.0-36.0); MEAN CORPUSCULAR VOLUME 88 fl (80-97); PLATELET COUNT 349 10^3/uL (150-450); RED BLOOD COUNT 4.32 10^6/uL (3.72-5.28); RED CELL DISTRIBUTION WIDTH 13.8 % (11.5-14.0); WHITE BLOOD COUNT 4.6 10^3/uL (4.0-10.5)
[2018-04-10 12:00] LABS: ALANINE AMINOTRANSFERASE 13 U/L (9-52); ALBUMIN 2.4 g/dL (3.5-5.0); ALKALINE PHOSPHATASE 57 U/L (38-126); ANION GAP 8 (5-19); ASPARTATE AMINO TRANSFERASE 21 U/L (14-36); BILIRUBIN,DIRECT 0.1 mg/dL (0.0-0.4); BILIRUBIN,TOTAL 0.3 mg/dL (0.2-1.3); BLOOD UREA NITROGEN 12 mg/dL (7-20); CALCIUM 8.2 mg/dL (8.4-10.2); CARBON DIOXIDE 28 mmol/L (22-30); CHLORIDE 105 mmol/L (98-107); GLUCOSE 134 mg/dL (75-110); POTASSIUM 3.7 mmol/L (3.6-5.0); SODIUM 140.5 mmol/L (137-145); TOTAL PROTEIN 5.3 g/dL (6.3-8.2)
[2018-04-10 13:10] LABS: UR PRO/CREAT RATIO RESULT 7.9 mg/mg (0.0-0.2); URINE CREATININE 77.1 mg/dL (16-327); URINE PROTEIN 611.9 mg/dL (<12)
== END ==
LOC: OD 10:28
PROVIDERS: ATTEND Internal Medicine Nephrology
DX: R80.9 Proteinuria, unspecified (principal); I10 Essential (primary) hypertension; N04.9 Nephrotic syndrome with unspecified morphologic changes
CPT/HCPCS: 36415; 80053; 81001; 82570; 83735; 84156; 85027

== ENCOUNTER → 2018-06-22 | Outpatient (CLI) | payer MEDICAID ==
[2018-06-22 11:03] LABS: ABSOLUTE LYMPHOCYTES (AUTO) 1.5 10^3/uL (0.5-4.7); ABSOLUTE MONOCYTES (AUTO) 0.3 10^3/uL (0.1-1.4); BASOPHILS % (AUTO) 0.9 % (0-2); EOSINOPHILS % (AUTO) 1.1 % (0-6); HEMATOCRIT 39.2 % (36.0-47.0); HEMOGLOBIN 13.2 g/dL (12.0-15.5); LYMPHOCYTES % (AUTO) 39.9 % (13-45); MEAN CORPUSCULAR HEMOGLOBIN 29.7 pg (27.0-33.4); MEAN CORPUSCULAR HGB CONC 33.6 g/dL (32.0-36.0); MEAN CORPUSCULAR VOLUME 88 fl (80-97); MONOCYTES % (AUTO) 7.5 % (3-13); PLATELET COUNT 378 10^3/uL (150-450); RED BLOOD COUNT 4.44 10^6/uL (3.72-5.28); RED CELL DISTRIBUTION WIDTH 13.5 % (11.5-14.0); SEGMENTED NEUTROPHILS % (AUTO) 50.6 % (42-78); TOTAL CELLS COUNTED % (AUTO) 100 %; WHITE BLOOD COUNT 3.9 10^3/uL (4.0-10.5)
[2018-06-22 11:04] LABS: APPEARANCE,URINE SLIGHTLY-CLOUDY; BILIRUBIN,URINE NEGATIVE (NEGATIVE); COLOR,URINE YELLOW; GLUCOSE, URINE NEGATIVE (NEGATIVE); KETONES,URINE NEGATIVE (NEGATIVE); LEUKOCYTE ESTERASE,URINE NEGATIVE (NEGATIVE); NITRITE,URINE NEGATIVE (NEGATIVE); PROTEIN,URINE >=500 mg/dL (NEGATIVE); URINE SPECIFIC GRAVITY 1.026; UROBILINOGEN,URINE NEGATIVE mg/dL (<2.0)
[2018-06-22 11:19] LABS: BLOOD UREA NITROGEN 12 mg/dL (7-20); CALCIUM 8.8 mg/dL (8.4-10.2); CHOLESTEROL 197.41 mg/dL (0-200); GLUCOSE 97 mg/dL (75-110); POTASSIUM 4.1 mmol/L (3.6-5.0); TRIGLYCERIDES 205 mg/dL (<150)
[2018-06-22 11:24] LABS: CARBON DIOXIDE 29 mmol/L (22-30); CHLORIDE 108 mmol/L (98-107); SODIUM 140.3 mmol/L (137-145)
[2018-06-22 11:26] LABS: URINE CREATININE 198.7 mg/dL (16-327)
[2018-06-22 11:29] LABS: DIRECT LDL 119 mg/dL (<100)
[2018-06-22 11:33] LABS: ANION GAP 3 (5-19)
[2018-06-22 13:00] LABS: 24 HOUR URINE PROTEIN RESULT 11008 mg/day (42-225)
[2018-06-22 13:09] LABS: UR PRO/CREAT RATIO RESULT 11.5 mg/mg (0.0-0.2); URINE PROTEIN 2283.4 mg/dL (<12)
== END ==
LOC: OD 10:13
PROVIDERS: ATTEND Internal Medicine Nephrology
DX: I12.9 Hypertensive chronic kidney disease with stage 1 through stage 4 chronic kidney disease, or unspecified chronic kidney disease (principal); R80.9 Proteinuria, unspecified; E78.5 Hyperlipidemia, unspecified
CPT/HCPCS: 36415; 80048; 80061; 81001; 82570; 84156; 85025

== ENCOUNTER → 2018-07-03 | Outpatient (CLI) | payer MEDICAID ==
[2018-07-03 17:51] LABS: URINE CREATININE 129.2 mg/dL (16-327)
[2018-07-03 17:52] LABS: ABSOLUTE EOSINOPHILS # (AUTO) 0.1 10^3/uL (0.0-0.6); ABSOLUTE LYMPHOCYTES (AUTO) 2.2 10^3/uL (0.5-4.7); ABSOLUTE MONOCYTES (AUTO) 0.4 10^3/uL (0.1-1.4); ABSOLUTE NEUT (AUTO) 2.5 10^3/uL (1.7-8.2); BASOPHILS % (AUTO) 0.7 % (0-2); EOSINOPHILS % (AUTO) 1.4 % (0-6); HEMATOCRIT 36.5 % (36.0-47.0); HEMOGLOBIN 12.3 g/dL (12.0-15.5); LYMPHOCYTES % (AUTO) 42.3 % (13-45); MEAN CORPUSCULAR HEMOGLOBIN 29.9 pg (27.0-33.4); MEAN CORPUSCULAR HGB CONC 33.8 g/dL (32.0-36.0); MEAN CORPUSCULAR VOLUME 88 fl (80-97); MONOCYTES % (AUTO) 7.3 % (3-13); PLATELET COUNT 388 10^3/uL (150-450); RED BLOOD COUNT 4.13 10^6/uL (3.72-5.28); RED CELL DISTRIBUTION WIDTH 13.4 % (11.5-14.0); SEGMENTED NEUTROPHILS % (AUTO) 48.3 % (42-78); TOTAL CELLS COUNTED % (AUTO) 100 %; WHITE BLOOD COUNT 5.2 10^3/uL (4.0-10.5)
[2018-07-03 18:12] LABS: APPEARANCE,URINE SLIGHTLY-CLOUDY; BILIRUBIN,URINE NEGATIVE (NEGATIVE); COLOR,URINE YELLOW; GLUCOSE, URINE NEGATIVE (NEGATIVE); KETONES,URINE NEGATIVE (NEGATIVE); LEUKOCYTE ESTERASE,URINE TRACE (NEGATIVE); NITRITE,URINE NEGATIVE (NEGATIVE); PROTEIN,URINE >=500 mg/dL (NEGATIVE); URINE SPECIFIC GRAVITY 1.022; UROBILINOGEN,URINE NEGATIVE mg/dL (<2.0)
[2018-07-03 18:14] LABS: ALANINE AMINOTRANSFERASE 15 U/L (9-52); ALBUMIN 2.4 g/dL (3.5-5.0); ALKALINE PHOSPHATASE 65 U/L (38-126); ANION GAP 5 (5-19); ASPARTATE AMINO TRANSFERASE 18 U/L (14-36); BILIRUBIN,DIRECT 0.1 mg/dL (0.0-0.4); BILIRUBIN,TOTAL 0.1 mg/dL (0.2-1.3); BLOOD UREA NITROGEN 13 mg/dL (7-20); CALCIUM 8.8 mg/dL (8.4-10.2); CARBON DIOXIDE 31 mmol/L (22-30); CHLORIDE 104 mmol/L (98-107); GLUCOSE 98 mg/dL (75-110); POTASSIUM 4.2 mmol/L (3.6-5.0); SODIUM 140.4 mmol/L (137-145); TOTAL PROTEIN 5.1 g/dL (6.3-8.2)
[2018-07-03 18:39] LABS: UR PRO/CREAT RATIO RESULT 11.3 mg/mg (0.0-0.2); URINE PROTEIN 1465.4 mg/dL (<12)
== END ==
LOC: OD 15:44
PROVIDERS: ATTEND Internal Medicine Nephrology
DX: R31.9 Hematuria, unspecified (principal); I10 Essential (primary) hypertension; E87.5 Hyperkalemia
CPT/HCPCS: 36415; 80053; 81001; 82570; 84156; 85025

== ENCOUNTER 2018-07-29 14:11 | Outpatient (CLI) | payer MEDICAID ==
[2018-07-29] MEDS ORDERED: METHYLPREDNISOLONE SOD SUCC 1,000 MG in DEXTROSE 5%-WATER 100 ML IV PRN (14:17)
[2018-07-29 14:42] VITALS: BP 148/70
[2018-07-29] MEDS ORDERED: METHYLPREDNISOLONE SOD SUCC 1,000 MG in DEXTROSE 5%-WATER 100 ML IV ONE (15:00)
== END 2018-07-29 15:31 | disposition home or self-care (01) ==
LOC: II 14:11 → 5TH 14:12 → II 15:31
PROVIDERS: ATTEND Internal Medicine Nephrology
PROC: 3E0333Z Introduction of Anti-inflammatory into Peripheral Vein, Percutaneous Approach (ICD-10-PCS; principal; 2018-07-29)
DX: N03.2 Chronic nephritic syndrome with diffuse membranous glomerulonephritis (principal); N04.9 Nephrotic syndrome with unspecified morphologic changes; R31.9 Hematuria, unspecified
CPT/HCPCS: 96365; J2930

== ENCOUNTER 2018-07-30 14:03 | Outpatient (CLI) | payer MEDICAID ==
[~2018-07-30 14:03] MED LIST changes: -FENTANYL CITRATE INJ/PF 100 MCG/2 ML AMPUL ONE; +METHYLPREDNISOLONE SOD SUCC 1,000 MG in DEXTROSE 5%-WATER 100 ML IV PRN; -MIDAZOLAM 2 MG/2 ML INJ ONE
[2018-07-30 14:15] VITALS: BP 136/66
== END 2018-07-30 15:37 | disposition home or self-care (01) ==
LOC: II 14:03 → 5TH 14:07 → II 15:37
PROVIDERS: ATTEND Internal Medicine Nephrology
PROC: 3E0333Z Introduction of Anti-inflammatory into Peripheral Vein, Percutaneous Approach (ICD-10-PCS; principal; 2018-07-30)
DX: N03.2 Chronic nephritic syndrome with diffuse membranous glomerulonephritis (principal); N04.9 Nephrotic syndrome with unspecified morphologic changes; R31.9 Hematuria, unspecified
CPT/HCPCS: 96365; J2930

== ENCOUNTER 2018-07-31 10:06 | Outpatient (CLI) | payer MEDICAID ==
[2018-07-31 11:33] VITALS: BP 121/58
== END 2018-07-31 12:02 | disposition home or self-care (01) ==
LOC: II 10:06 → 5TH 10:08 → II 12:02
PROVIDERS: ATTEND Internal Medicine Nephrology
PROC: 3E0333Z Introduction of Anti-inflammatory into Peripheral Vein, Percutaneous Approach (ICD-10-PCS; principal; 2018-07-31)
DX: N03.2 Chronic nephritic syndrome with diffuse membranous glomerulonephritis (principal); N04.9 Nephrotic syndrome with unspecified morphologic changes; R31.9 Hematuria, unspecified
CPT/HCPCS: 96365; J2930

== ENCOUNTER → 2018-08-19 | Outpatient (CLI) | payer MEDICAID ==
[2018-08-19 11:28] LABS: APPEARANCE,URINE CLEAR; BILIRUBIN,URINE NEGATIVE (NEGATIVE); COLOR,URINE STRAW; GLUCOSE, URINE NEGATIVE (NEGATIVE); KETONES,URINE NEGATIVE (NEGATIVE); LEUKOCYTE ESTERASE,URINE NEGATIVE (NEGATIVE); NITRITE,URINE NEGATIVE (NEGATIVE); PROTEIN,URINE 100 mg/dL (NEGATIVE); URINE SPECIFIC GRAVITY 1.008; UROBILINOGEN,URINE NEGATIVE mg/dL (<2.0)
[2018-08-19 11:59] LABS: HEMATOCRIT 37.9 % (36.0-47.0); HEMOGLOBIN 12.7 g/dL (12.0-15.5); MEAN CORPUSCULAR HEMOGLOBIN 29.5 pg (27.0-33.4); MEAN CORPUSCULAR HGB CONC 33.5 g/dL (32.0-36.0); MEAN CORPUSCULAR VOLUME 88 fl (80-97); PLATELET COUNT 338 10^3/uL (150-450); RED BLOOD COUNT 4.31 10^6/uL (3.72-5.28); RED CELL DISTRIBUTION WIDTH 13.6 % (11.5-14.0)
[2018-08-19 12:12] LABS: ABSOLUTE LYMPHOCYTES# (MANUAL) 1.5 10^3/uL (0.5-4.7); ABSOLUTE MONOCYTES # (MANUAL) 0.3 10^3/uL (0.1-1.4); ABSOLUTE NEUTROPHILS# (MANUAL) 3.3 10^3/uL (1.7-8.2); BASOPHILS % (MANUAL) 0 % (0-2); EOSINOPHILS % (MANUAL) 1 % (0-6); LYMPHOCYTES % (MANUAL) 29 % (13-45); MONOCYTES % (MANUAL) 5 % (3-13); SEGMENTED NEUTROPHILS % (MAN) 65 % (42-78); TOTAL CELLS COUNTED 100
[2018-08-19 12:13] LABS: PLATELET COMMENT ADEQUATE; RBC MORPHOLOGY COMMENT NORMO-CYTIC/CHROMIC
[2018-08-19 12:14] LABS: URINE CREATININE 22.2 mg/dL (16-327)
[2018-08-19 12:25] LABS: UR PRO/CREAT RATIO RESULT 11.4 mg/mg (0.0-0.2); URINE PROTEIN 252.5 mg/dL (<12)
[2018-08-19 16:21] LABS: BLOOD UREA NITROGEN 13 mg/dL (7-20); CALCIUM 8.3 mg/dL (8.4-10.2); GLUCOSE 114 mg/dL (75-110)
[2018-08-19 16:32] LABS: ANION GAP 1 (5-19); CARBON DIOXIDE 29 mmol/L (22-30); CHLORIDE 106 mmol/L (98-107); SODIUM 136.1 mmol/L (137-145)
== END ==
LOC: OD 10:22
PROVIDERS: ATTEND Internal Medicine Nephrology
DX: I12.9 Hypertensive chronic kidney disease with stage 1 through stage 4 chronic kidney disease, or unspecified chronic kidney disease (principal); N18.9 Chronic kidney disease, unspecified; R80.9 Proteinuria, unspecified; E78.5 Hyperlipidemia, unspecified
CPT/HCPCS: 36415; 80048; 81001; 82570; 84156; 85025

== ENCOUNTER 2018-09-19 17:35 | Inpatient (IN) | payer MEDICAID ==
[~2018-09-19 17:35] MED LIST changes: +HEPARIN SOD (PORCINE) 5,000 UNIT/ML 1 ML SYRINGE SUBCUT SCH; -METHYLPREDNISOLONE SOD SUCC 1,000 MG in DEXTROSE 5%-WATER 100 ML IV PRN
[2018-09-19] MEDS ORDERED: KETOROLAC TROMETHAMINE INJ/PF 30 MG/1 ML SDV IV ONE (18:37)
[2018-09-19] MEDS ORDERED: ONDANSETRON HCL INJ/PF 4 MG/2 ML SDV IV ONE (18:37)
[2018-09-19] MEDS ORDERED: NORMAL SALINE 1000 ML 1,000 ML IV ONE (18:38)
--- NOTE | 2018-09-19 18:40 | ER Document Report ---
ED Medical Screen (RME) - General Chief Complaint: Nausea/Vomiting/Diarrhea Stated Complaint: FEVER Time Seen by Provider: 09/19/18 18:35 Primary Care Provider: Simba FISH MD [Primary Care Provider] - Follow up as needed Mode of Arrival: Wheelchair Information source: Patient Notes: Patient is a 33-year-old female who presents to the emergency department with her significant other. She is complaining of nausea, vomiting and diarrhea that began yesterday. She reports today she continues to have nausea vomiting diarrhea now also has fever as high as 101. She denies any abdominal pain other than when the nausea comes on, states when she has pain in her abdomen is in the left upper quadrant. She denies ever having any symptoms like this in the past. Denies any sick contacts. Denies any dysuria or urinary frequency. Denies any abnormal vaginal discharge. Patient reports she is on her menstrual cycle right now. Exam: Abdomen large, round, nontender. Patient dry heaving in triage. I have greeted and performed a rapid initial assessment of this patient. A comprehensive ED assessment and evaluation of the patient, analysis of test results and completion of the medical decision making process will be conducted by additional ED providers. Dictation of this chart was performed using voice recognition software; therefore, there may be some unintended grammatical errors. TRAVEL OUTSIDE OF THE [place] IN LAST 30 DAYS: No - Related Data Allergies/Adverse Reactions: No Known Allergies Allergy (Verified 09/19/18 18:18) Past Medical History - Social History Family history: Reviewed & Not Pertinent - Past Medical History Cardiac Medical History: Reports: Hx Hypertension Denies: Hx Coronary Artery Disease, Hx Heart Attack Pulmonary Medical History: Denies: Hx Asthma, Hx Bronchitis, Hx COPD, Hx Pneumonia Neurological Medical History: Reports: Hx Migraine. Denies: Hx Cerebrovascular Accident, Hx Seizures Renal/ Medical History: Reports: Hx Kidney Stones. Denies: Hx Peritoneal Dialysis GI Medical History: Reports: Hx Gastroesophageal Reflux Disease Musculoskeltal Medical History: Denies Hx Arthritis, Reports Hx Musculoskeletal Trauma Skin Medical History: Reports Hx Cellulitis, Reports Hx Eczema Psychiatric Medical History: Reports: Hx Anxiety, Hx Bipolar Disorder, Hx Depression - Immunizations Hx Diphtheria, Pertussis, Tetanus Vaccination: No History of Influenza Vaccine for 03/2017 - 08/2017 Season: No Physical Exam - Vital signs Vitals: Temp Pulse Resp BP Pulse Ox 101.1 F H 117 H 16 116/85 95 09/19/18 18:22 09/19/18 18:22 09/19/18 18:22 09/19/18 18:22 09/19/18 18:22 Course - Vital Signs Vital signs: Temp Pulse Resp BP Pulse Ox 101.1 F H 117 H 16 116/85 95 09/19/18 18:22 09/19/18 18:22 09/19/18 18:22 09/19/18 18:22 09/19/18 18:22 Doctor's Discharge - Discharge Referrals: Simba FISH MD [Primary Care Provider] - Follow up as needed
[2018-09-19 19:28] LABS: ABSOLUTE MONOCYTES (AUTO) 0.5 10^3/uL (0.1-1.4); EOSINOPHILS % (AUTO) 0.2 % (0-6); MONOCYTES % (AUTO) 6.1 % (3-13); TOTAL CELLS COUNTED % (AUTO) 100 %
[2018-09-19 19:34] LABS: ABSOLUTE NEUT (AUTO) 6.4 10^3/uL (1.7-8.2); BASOPHILS % (AUTO) 0.2 % (0-2); HEMATOCRIT 43.9 % (36.0-47.0); LYMPHOCYTES % (AUTO) 12.4 % (13-45); MEAN CORPUSCULAR HEMOGLOBIN 30.2 pg (27.0-33.4); MEAN CORPUSCULAR HGB CONC 34.1 g/dL (32.0-36.0); MEAN CORPUSCULAR VOLUME 89 fl (80-97); PLATELET COUNT 330 10^3/uL (150-450); RED BLOOD COUNT 4.95 10^6/uL (3.72-5.28); RED CELL DISTRIBUTION WIDTH 14.8 % (11.5-14.0); SEGMENTED NEUTROPHILS % (AUTO) 81.1 % (42-78); WHITE BLOOD COUNT 7.9 10^3/uL (4.0-10.5)
[2018-09-19 19:48] LABS: ALANINE AMINOTRANSFERASE 21 U/L (9-52); ALBUMIN 2.8 g/dL (3.5-5.0); ALKALINE PHOSPHATASE 56 U/L (38-126); ASPARTATE AMINO TRANSFERASE 39 U/L (14-36); BILIRUBIN,DIRECT 0.2 mg/dL (0.0-0.4); BILIRUBIN,TOTAL 0.4 mg/dL (0.2-1.3); BLOOD UREA NITROGEN 14 mg/dL (7-20); CALCIUM 8.2 mg/dL (8.4-10.2); CARBON DIOXIDE 31 mmol/L (22-30); CHLORIDE 99 mmol/L (98-107); GLUCOSE 150 mg/dL (75-110); LIPASE 54.8 U/L (23-300); POTASSIUM 3.3 mmol/L (3.6-5.0); SODIUM 134.3 mmol/L (137-145)
[2018-09-19 19:49] LABS: ANION GAP 5 (5-19)
--- NOTE | 2018-09-19 20:15 | ER Document Report ---
ED General - General Chief Complaint: Nausea/Vomiting/Diarrhea Stated Complaint: FEVER Time Seen by Provider: 09/19/18 18:35 Primary Care Provider: Simba FISH MD [Primary Care Provider] - Follow up as needed Mode of Arrival: Wheelchair Information source: Patient TRAVEL OUTSIDE OF THE [place] IN LAST 30 DAYS: No - HPI Patient complains to provider of: Nausea, vomiting, fever, diarrhea Onset: Other - Started last night Onset/Duration: Sudden Quality of pain: Cramping Severity: Moderate Pain Level: 3 Associated symptoms: Chills, Diarrhea, Fever, Nausea, Vomiting Exacerbated by: Denies Relieved by: Denies Similar symptoms previously: No Recently seen / treated by doctor: No Notes: 33-year-old -Micron[place] female with history of kidney disease and presently on 80 mg of prednisone daily for the past month presents with acute onset nausea vomiting and diarrhea and fever since last night. Some mild abdominal cramping but no severe abdominal pain. - Related Data Allergies/Adverse Reactions: No Known Allergies Allergy (Verified 09/19/18 18:18) Past Medical History - General Information source: Patient - Social History Smoking Status: Current Every Day Smoker Family History: None, Reviewed & Not Pertinent Patient has suicidal ideation: No Patient has homicidal ideation: No - Past Medical History Cardiac Medical History: Reports: Hx Hypertension Denies: Hx Coronary Artery Disease, Hx Heart Attack Pulmonary Medical History: Denies: Hx Asthma, Hx Bronchitis, Hx COPD, Hx Pneumonia Neurological Medical History: Reports: Hx Migraine. Denies: Hx Cerebrovascular Accident, Hx Seizures Renal/ Medical History: Reports: Hx Kidney Stones. Denies: Hx Peritoneal Dialysis GI Medical History: Reports: Hx Gastroesophageal Reflux Disease Musculoskeletal Medical History: Denies Hx Arthritis, Reports Hx Musculoskeletal Trauma Skin Medical History: Reports Hx Cellulitis, Reports Hx Eczema Psychiatric Medical History: Reports: Hx Anxiety, Hx Bipolar Disorder, Hx Depression - Immunizations Hx Diphtheria, Pertussis, Tetanus Vaccination: No Hx Pneumococcal Vaccination: 03/09/12 Review of Systems - Review of Systems Notes: Constitutional: Positive for fevers and chills EENT: No eye redness. No eye pain. No ear pain. No sore throat. Cardiovascular: No chest pain. No palpitations. Respiratory: No cough. No shortness of breath. No respiratory distress. Gastrointestinal: Positive for abdominal cramping, nausea, vomiting, and diarrhea Genitourinary: Atraumatic. No lesions. No pain. No discharge. Musculoskeletal: Atraumatic. No swelling. No deformities. Skin: No rash or lesions. Lymphatic: No swollen lymph nodes. Neurologic: No headache. No syncope. Psychiatric: No suicidal or homicidal ideation. Physical Exam - Vital signs Vitals: Temp Pulse Resp BP Pulse Ox 101.1 F H 117 H 16 116/85 95 09/19/18 18:22 09/19/18 18:22 09/19/18 18:22 09/19/18 18:22 09/19/18 18:22 - Notes Notes: General: Well-developed, well-nourished. In no acute distress. Non-toxic appearing. Cardiac: Well-perfused. Regular rate and rhythm. No murmurs, rubs, or gallops. Pulmonary: No respiratory distress. No cyanosis. Bilateral lung fiels are clear to auscultation. Abdominal: Non-distended. Non-rigid. Bowels sounds are present in all four quadrants. No guarding or rebound. HEENT: Head is atraumatic. Conjunctivae not reddened. No tearing. PERRL. EOMI. Orbits atraumatic. No periorbital swelling or erythema. Oropharynx is without er ythema, swelling, or exudates. Neck: Supple. No adenopathy. No meningismus. Dermatologic: Warm with good turgor. No rash. Atraumatic. Chest: Atraumatic. No chest wall tenderness to palpation. Musculoskeletal: Moves all extremities well. No range of motion deficits. no muscular or joint tenderness. No paraspinal muscle tenderness. no midline spinal tenderness or step-off. Genitourinary: Examination deferred Neurologic: No gross neurologic deficits. Psychiatric: Normal mood. Course - Re-evaluation Re-evalutation: 09/19/18 20:14 Patient is basically immune suppressed. We will get blood cultures and send a diarrhea sample down for C. difficile. Will hydrate with normal saline, check electrolytes and UA. Replete as necessary. Zofran for nausea. P.o. and IV hydration. - Vital Signs Vital signs: Temp Pulse Resp BP Pulse Ox 101.1 F H 117 H 16 116/85 95 09/19/18 18:22 09/19/18 18:22 09/19/18 18:22 09/19/18 18:22 09/19/18 18:22 - Laboratory Result Diagrams: 09/19/18 19:00 09/19/18 19:00 Laboratory results interpreted by me: 09/19/18 09/19/18 09/19/18 19:00 19:00 19:56 RDW 14.8 H Seg Neutrophils % 81.1 H Lymphocytes % 12.4 L Sodium 134.3 L Potassium 3.3 L Carbon Dioxide 31 H Glucose 150 H Calcium 8.2 L AST 39 H Total Protein 6.0 L Albumin 2.8 L Urine Protein >=500 H Urine Blood LARGE H Urine Ascorbic Acid 20 H Discharge - Discharge Clinical Impression: History of immunosuppression therapy, History of membranous glomerulonephritis, C. difficile diarrhea UTI (urinary tract infection) Qualifiers: Urinary tract infection type: site unspecified Hematuria presence: without hematuria Qualified Code(s): N39.0 - Urinary tract infection, site not specified Fever Qualifiers: Fever type: unspecified Qualified Code(s): R50.9 - Fever, unspecified Condition: Good Disposition: ADMITTED INPATIENT Admitting Provider: Sumeet (Hospitalist) Unit Admitted: Medical Floor Referrals: Simba FISH MD [Primary Care Provider] - Follow up as needed
[2018-09-19 20:17] LABS: APPEARANCE,URINE CLOUDY; BILIRUBIN,URINE NEGATIVE (NEGATIVE); COLOR,URINE AMBER; GLUCOSE, URINE NEGATIVE (NEGATIVE); KETONES,URINE NEGATIVE (NEGATIVE); LEUKOCYTE ESTERASE,URINE NEGATIVE (NEGATIVE); NITRITE,URINE NEGATIVE (NEGATIVE); PROTEIN,URINE >=500 mg/dL (NEGATIVE); URINE SPECIFIC GRAVITY 1.041; UROBILINOGEN,URINE NEGATIVE mg/dL (<2.0)
[2018-09-19] MEDS ORDERED: POTASSIUM CHLORIDE 10 MEQ CAPSULE.ER PO ONE (21:42)
[2018-09-19] MEDS ORDERED: ACETAMINOPHEN 325 MG TABLET PO PRN (22:35)
[2018-09-19] MEDS ORDERED: IPRATROPIUM/ALBUTEROL 0.5-2.5 MG/3 ML AMPUL NEB PRN (22:35)
[2018-09-19] MEDS ORDERED: PANTOPRAZOLE SODIUM 40 MG VIAL IV ONE (23:00)
[2018-09-19] MEDS ORDERED: DOXYCYCLINE HYCLATE 200 MG in DEXTROSE 5%-WATER 250 ML IV ONE (23:00)
[2018-09-19] MEDS ORDERED: HEPARIN SOD (PORCINE) 5,000 UNIT/ML 1 ML SYRINGE SUBCUT ONE (23:00)
[2018-09-19] MEDS ORDERED: PREDNISONE 20 MG TABLET PO ONE (23:00)
[2018-09-19] MEDS ORDERED: DOXYCYCLINE HYCLATE INJ 100 MG VIAL ONE (23:17)
[2018-09-19] MEDS: VANCOMYCIN HCL INJ 500 MG VIAL PO SCH (23:26)
[2018-09-20] MEDS: NORMAL SALINE 1000 ML 1,000 ML IV PRN ×2 (01:24→08:33)
--- NOTE | 2018-09-20 03:28 | PDOC H&P ---
History of Present Illness Admission Date/PCP: 09/19/18 22:37 K V XOCHILT FISH MD Patient complains of: Nausea vomiting and diarrhea History of Present Illness: MONTSERRAT ALSTON is a 33 year old female with a past medical history of morbid obesity, obstructive sleep apnea, tobacco dependent and membranous glomerulopathy on immunosuppressive prednisone times 30 days. Patient presents with 24 hours of nausea, diarrhea, fever and polyuria. In the emergency room she is found to have fever of 101.4, tachycardia, pyuria and C. difficile positive stool. She receives IV fluids and referred to the hospitalist for admission. Patient admits to several days of polyuria, denies suspect meal, recent antibiotics or [id number] medications. Past Medical History Cardiac Medical History: Reports: Hypertension Denies: Coronary Artery Disease, Myocardial Infarction Pulmonary Medical History: Denies: Asthma, Bronchitis, Chronic Obstructive Pulmonary Disease (COPD), Pneumonia Neurological Medical History: Reports: Migraine Denies: Seizures Renal/ Medical History: Reports: Other - Membranous glomerulonephritis GI Medical History: Reports: Gastroesophageal Reflux Disease Musculoskeltal Medical History: Denies: Arthritis Skin Medical History: Reports: Eczema Psychiatric Medical History: Reports: Bipolar Disorder, Depression Hematology: Denies: Anemia Social History Information Source: Patient, [facility] Records Lives with: Spouse/Significant other Smoking Status: Current Every Day Smoker Family History Family History: DM, Hypertension Parental Family History Reviewed: Yes Children Family History Reviewed: Yes Sibling(s) Family History Reviewed.: Yes Medication/Allergy Home Medications: Atorvastatin Calcium 10 mg PO QHS 03/11/17 Aspirin [Aspirin 81 mg Chewable Tablet] 81 mg PO QHS 09/20/18 Cetirizine HCl [All Day Allergy] 10 mg PO QHS 09/20/18 Clonidine HCl [Catapres] 0.1 mg PO QHS 09/20/18 Furosemide [Lasix 20 mg Tablet] 80 mg PO QAM 09/20/18 Furosemide [Lasix 40 mg Tablet] 40 mg PO ASDIR PRN 09/20/18 Lisinopril [Prinivil 40 mg Tablet] 40 mg PO BID 09/20/18 Multivit with Calcium,Iron,Min [Multiple Vitamins For Women] 1 tab PO DAILY 09/20/18 Ondansetron HCl [Zofran 4 mg Tablet] 4 mg PO Q6HP PRN 09/20/18 Allergies/Adverse Reactions: No Known Allergies Allergy (Verified 09/19/18 18:18) Review of Systems Constitutional: ABSENT: chills, fever(s), headache(s), weight gain, weight loss Eyes: ABSENT: visual disturbances Ears: ABSENT: hearing changes Cardiovascular: ABSENT: chest pain, dyspnea on exertion, edema, orthropnea, palpitations Respiratory: ABSENT: cough, hemoptysis Gastrointestinal: ABSENT: abdominal pain, constipation, diarrhea, hematemesis, hematochezia, nausea, vomiting Genitourinary: ABSENT: dysuria, hematuria Musculoskeletal: ABSENT: joint swelling Integumentary: ABSENT: rash, wounds Neurological: ABSENT: abnormal gait, abnormal speech, confusion, dizziness, focal weakness, syncope Psychiatric: ABSENT: anxiety, depression, homidical ideation, suicidal ideation Endocrine: ABSENT: cold intolerance, heat intolerance, polydipsia, polyuria Hematologic/Lymphatic: ABSENT: easy bleeding, easy bruising Physical Exam Vital Signs: Temp Pulse Resp BP Pulse Ox 101.1 F H 98 15 133/69 H 98 09/19/18 18:22 09/20/18 00:43 09/20/18 00:43 09/20/18 00:43 09/20/18 00:43 Intake & Output 09/18/18 09/19/18 09/20/18 11:59 11:59 11:59 Intake Total 1000 Balance 1000 Weight 164.7 kg General appearance: PRESENT: mild distress, morbidly obese, well-developed, well-nourished Head exam: PRESENT: atraumatic, normocephalic Eye exam: PRESENT: conjunctiva pink, EOMI, PERRLA. ABSENT: scleral icterus Ear exam: PRESENT: normal external ear exam Mouth exam: PRESENT: moist, tongue midline Neck exam: ABSENT: carotid bruit, JVD, lymphadenopathy, thyromegaly Respiratory exam: PRESENT: clear to auscultation stanislaw. ABSENT: rales, rhonchi, wheezes Cardiovascular exam: PRESENT: RRR. ABSENT: diastolic murmur, rubs, systolic murmur Pulses: PRESENT: normal dorsalis pedis pul Vascular exam: PRESENT: normal capillary refill GI/Abdominal exam: PRESENT: normal bowel sounds, soft. ABSENT: distended, guarding, mass, organolmegaly, rebound, tenderness Rectal exam: PRESENT: deferred Extremities exam: PRESENT: full ROM. ABSENT: calf tenderness, clubbing, pedal edema Neurological exam: PRESENT: alert, awake, oriented to person, oriented to place, oriented to time, oriented to situation, CN II-XII grossly intact. ABSENT: motor sensory deficit Psychiatric exam: PRESENT: appropriate affect, normal mood. ABSENT: homicidal ideation, suicidal ideation Skin exam: PRESENT: dry, intact, warm. ABSENT: cyanosis, rash Results Laboratory Results: 09/19/18 19:00 09/19/18 19:00 09/19/18 09/19/18 09/19/18 19:00 19:00 19:00 WBC 7.9 RBC 4.95 Hgb 15.0 Hct 43.9 MCV 89 MCH 30.2 MCHC 34.1 RDW 14.8 H Plt Count 330 Seg Neutrophils % 81.1 H Lymphocytes % 12.4 L Monocytes % 6.1 Eosinophils % 0.2 Basophils % 0.2 Absolute Neutrophils 6.4 Absolute Lymphocytes 1.0 Absolute Monocytes 0.5 Absolute Eosinophils 0.0 Absolute Basophils 0.0 Sodium 134.3 L Potassium 3.3 L Chloride 99 Carbon Dioxide 31 H Anion Gap 5 BUN 14 Creatinine 0.62 Est GFR ( Amer) > 60 Est GFR (Non-Af Amer) > 60 Glucose 150 H Calcium 8.2 L Magnesium Total Bilirubin 0.4 AST 39 H ALT 21 Alkaline Phosphatase 56 Total Protein 6.0 L Albumin 2.8 L Lipase 54.8 Serum HCG, Qual NEGATIVE Urine Color Urine Appearance Urine pH Ur Specific [place] Urine Protein Urine Glucose (UA) Urine Ketones Urine Blood Urine Nitrite Ur Leukocyte Esterase Urine WBC (Auto) Urine RBC (Auto) 09/19/18 09/19/18 19:00 19:56 WBC RBC Hgb Hct MCV MCH MCHC RDW Plt Count Seg Neutrophils % Lymphocytes % Monocytes % Eosinophils % Basophils % Absolute Neutrophils Absolute Lymphocytes Absolute Monocytes Absolute Eosinophils Absolute Basophils Sodium Potassium Chloride Carbon Dioxide Anion Gap BUN Creatinine Est GFR ( Amer) Est GFR (Non-Af Amer) Glucose Calcium Magnesium 1.6 Total Bilirubin AST ALT Alkaline Phosphatase Total Protein Albumin Lipase Serum HCG, Qual Urine Color [place] Urine Appearance CLOUDY Urine pH 5.0 Ur Specific [place] 1.041 Urine Protein >=500 H Urine Glucose (UA) NEGATIVE Urine Ketones NEGATIVE Urine Blood LARGE H Urine Nitrite NEGATIVE Ur Leukocyte Esterase NEGATIVE Urine WBC (Auto) >182 Urine RBC (Auto) >182 Assessment and Plan - Diagnosis (1) C. difficile diarrhea Is this a current diagnosis for this admission?: Yes Plan: IV fluid challenge, symptomatic management, p.o. vancomycin, follow-up CBC (2) UTI (urinary tract infection) Qualifiers: Urinary tract infection type: site unspecified Hematuria presence: without hematuria Qualified Code(s): N39.0 - Urinary tract infection, site not specified Is this a current diagnosis for this admission?: Yes Plan: Comp located by immunosuppression and C. difficile colitis. Doxycycline initiated empirically for risk reduction of C. difficile complication. Follow- up CBC and blood and urine culture, (3) Obstructive sleep apnea Is this a current diagnosis for this admission?: Yes Plan: CPAP (4) History of membranous glomerulonephritis Is this a current diagnosis for this admission?: Yes Plan: Persistent severe proteinuria, continue full dose prednisone. Follow-up nephrology consult. - Time Time Spent with patient: 35 or more minutes - Inpatient Certification Medical Necessity: Need Close Monitoring Due to Risk of Patient Decompensation
[2018-09-20] MEDS ORDERED: VANCOMYCIN HCL INJ 500 MG VIAL ONE (04:30)
[2018-09-20 05:03] LABS: ABSOLUTE LYMPHOCYTES (AUTO) 1.1 10^3/uL (0.5-4.7); ABSOLUTE MONOCYTES (AUTO) 0.4 10^3/uL (0.1-1.4); BASOPHILS % (AUTO) 0.2 % (0-2); EOSINOPHILS % (AUTO) 0.3 % (0-6); HEMATOCRIT 37.2 % (36.0-47.0); HEMOGLOBIN 12.5 g/dL (12.0-15.5); LYMPHOCYTES % (AUTO) 20.2 % (13-45); MEAN CORPUSCULAR HEMOGLOBIN 29.5 pg (27.0-33.4); MEAN CORPUSCULAR HGB CONC 33.5 g/dL (32.0-36.0); MEAN CORPUSCULAR VOLUME 88 fl (80-97); MONOCYTES % (AUTO) 7.9 % (3-13); PLATELET COUNT 297 10^3/uL (150-450); RED BLOOD COUNT 4.22 10^6/uL (3.72-5.28); RED CELL DISTRIBUTION WIDTH 14.7 % (11.5-14.0); SEGMENTED NEUTROPHILS % (AUTO) 71.4 % (42-78); TOTAL CELLS COUNTED % (AUTO) 100 %; WHITE BLOOD COUNT 5.6 10^3/uL (4.0-10.5)
[2018-09-20 05:11] LABS: BLOOD UREA NITROGEN 12 mg/dL (7-20); CALCIUM 7.7 mg/dL (8.4-10.2); GLUCOSE 108 mg/dL (75-110); POTASSIUM 3.9 mmol/L (3.6-5.0)
[2018-09-20 05:16] LABS: CARBON DIOXIDE 31 mmol/L (22-30); CHLORIDE 101 mmol/L (98-107); SODIUM 133.3 mmol/L (137-145)
[2018-09-20 05:30] LABS: ANION GAP 1 (5-19)
[2018-09-20] MEDS: HEPARIN SOD (PORCINE) 5,000 UNIT/ML 1 ML SYRINGE SUBCUT SCH ×3 (05:45→21:23)
[2018-09-20] MEDS: VANCOMYCIN HCL INJ 500 MG VIAL PO SCH ×4 (05:45→23:14)
[2018-09-20] MEDS ORDERED: ATORVASTATIN CALCIUM 10 MG TABLET PO SCH ×2 (10:00→22:00)
[2018-09-20] MEDS ORDERED: LISINOPRIL 5 MG TABLET PO SCH (10:00)
[2018-09-20] MEDS ORDERED: DOXYCYCLINE HYCLATE 100 MG in DEXTROSE 5%-WATER 250 ML IV SCH (10:00)
[2018-09-20] MEDS ORDERED: DOXYCYCLINE HYCLATE 200 MG in DEXTROSE 5%-WATER 250 ML IV SCH (10:00)
[2018-09-20] MEDS: LISINOPRIL 10 MG TABLET PO SCH ×3 (10:18→21:19)
[2018-09-20] MEDS: PANTOPRAZOLE SODIUM 40 MG VIAL IV SCH ×2 (10:18→21:22)
[2018-09-20] MEDS: PREDNISONE 20 MG TABLET PO SCH ×2 (10:18→17:24)
--- NOTE | 2018-09-20 12:08 | PDOC PROGRESS REPORT ---
Subjective Progress Note for:: 09/20/18 Subjective:: This is a 31 years old black female patient with past medical history of bipolar disorder, hypertension, obstructive sleep apnea, tobacco dependence, morbid obesity and history of membranous glomerulonephritis presented with chief complaint of nausea vomiting abdominal pain and diarrhea. Her stool for C. difficile colitis turn positive. Patient is being managed with oral vancomycin and hydration. I added Flagyl to her regimen. This morning I seen patient resting in bed comfortably. She complains still she has frequent diarrhea. I reconciled her medication and I reviewed her labs. Reason For Visit: UTI C DIFF IMMUN SUPRESSION Physical Exam Vital Signs: Temp Pulse Resp BP Pulse Ox 101.1 F H 98 16 133/69 H 96 09/19/18 18:22 09/20/18 08:18 09/20/18 08:18 09/20/18 00:43 09/20/18 08:18 Intake & Output 09/19/18 09/20/18 09/21/18 06:59 06:59 06:59 Intake Total 1434 1995 Output Total 200 Balance 1234 1995 Weight 164.7 kg General appearance: PRESENT: no acute distress, morbidly obese, well-developed, well-nourished Head exam: PRESENT: atraumatic, normocephalic Eye exam: PRESENT: conjunctiva pink, EOMI, PERRLA. ABSENT: scleral icterus Ear exam: PRESENT: normal external ear exam Mouth exam: PRESENT: moist, tongue midline Neck exam: ABSENT: carotid bruit, JVD, lymphadenopathy, thyromegaly Respiratory exam: PRESENT: clear to auscultation stanislaw. ABSENT: rales, rhonchi, wheezes Cardiovascular exam: PRESENT: RRR. ABSENT: diastolic murmur, rubs, systolic murmur Pulses: PRESENT: normal dorsalis pedis pul Vascular exam: PRESENT: normal capillary refill GI/Abdominal exam: PRESENT: normal bowel sounds, soft. ABSENT: distended, guarding, mass, organolmegaly, rebound, tenderness Rectal exam: PRESENT: deferred Extremities exam: PRESENT: full ROM. ABSENT: calf tenderness, clubbing, pedal edema Neurological exam: PRESENT: alert, awake, oriented to person, oriented to place, oriented to time, oriented to situation, CN II-XII grossly intact. ABSENT: motor sensory deficit Psychiatric exam: PRESENT: appropriate affect, normal mood. ABSENT: homicidal ideation, suicidal ideation Skin exam: PRESENT: dry, intact, warm. ABSENT: cyanosis, rash Results Laboratory Results: 09/20/18 04:24 09/20/18 04:24 09/19/18 09/19/18 09/19/18 19:00 19:00 19:00 WBC 7.9 RBC 4.95 Hgb 15.0 Hct 43.9 MCV 89 MCH 30.2 MCHC 34.1 RDW 14.8 H Plt Count 330 Seg Neutrophils % 81.1 H Lymphocytes % 12.4 L Monocytes % 6.1 Eosinophils % 0.2 Basophils % 0.2 Absolute Neutrophils 6.4 Absolute Lymphocytes 1.0 Absolute Monocytes 0.5 Absolute Eosinophils 0.0 Absolute Basophils 0.0 Sodium 134.3 L Potassium 3.3 L Chloride 99 Carbon Dioxide 31 H Anion Gap 5 BUN 14 Creatinine 0.62 Est GFR ( Amer) > 60 Est GFR (Non-Af Amer) > 60 Glucose 150 H Calcium 8.2 L Magnesium Total Bilirubin 0.4 AST 39 H ALT 21 Alkaline Phosphatase 56 Total Protein 6.0 L Albumin 2.8 L Lipase 54.8 Serum HCG, Qual NEGATIVE Urine Color Urine Appearance Urine pH Ur Specific [place] Urine Protein Urine Glucose (UA) Urine Ketones Urine Blood Urine Nitrite Ur Leukocyte Esterase Urine WBC (Auto) Urine RBC (Auto) 09/19/18 09/19/18 09/20/18 19:00 19:56 04:24 WBC 5.6 RBC 4.22 Hgb 12.5 D Hct 37.2 MCV 88 MCH 29.5 MCHC 33.5 RDW 14.7 H Plt Count 297 Seg Neutrophils % 71.4 Lymphocytes % 20.2 Monocytes % 7.9 Eosinophils % 0.3 Basophils % 0.2 Absolute Neutrophils 4.0 Absolute Lymphocytes 1.1 Absolute Monocytes 0.4 Absolute Eosinophils 0.0 Absolute Basophils 0.0 Sodium Potassium Chloride Carbon Dioxide Anion Gap BUN Creatinine Est GFR ( Amer) Est GFR (Non-Af Amer) Glucose Calcium Magnesium 1.6 Total Bilirubin AST ALT Alkaline Phosphatase Total Protein Albumin Lipase Serum HCG, Qual Urine Color [place] Urine Appearance CLOUDY Urine pH 5.0 Ur Specific [place] 1.041 Urine Protein >=500 H Urine Glucose (UA) NEGATIVE Urine Ketones NEGATIVE Urine Blood LARGE H Urine Nitrite NEGATIVE Ur Leukocyte Esterase NEGATIVE Urine WBC (Auto) >182 Urine RBC (Auto) >182 09/20/18 04:24 WBC RBC Hgb Hct MCV MCH MCHC RDW Plt Count Seg Neutrophils % Lymphocytes % Monocytes % Eosinophils % Basophils % Absolute Neutrophils Absolute Lymphocytes Absolute Monocytes Absolute Eosinophils Absolute Basophils Sodium 133.3 L Potassium 3.9 Chloride 101 Carbon Dioxide 31 H Anion Gap 1 L BUN 12 Creatinine 0.56 Est GFR ( Amer) > 60 Est GFR (Non-Af Amer) > 60 Glucose 108 Calcium 7.7 L Magnesium Total Bilirubin AST ALT Alkaline Phosphatase Total Protein Albumin Lipase Serum HCG, Qual Urine Color Urine Appearance Urine pH Ur Specific [place] Urine Protein Urine Glucose (UA) Urine Ketones Urine Blood Urine Nitrite Ur Leukocyte Esterase Urine WBC (Auto) Urine RBC (Auto) Assessment and Plan - Diagnosis (1) Nausea vomiting diarrhea due to C. diffi Is this a current diagnosis for this admission?: Yes Plan: Continue current regimen of p.o. vancomycin and Flagyl. We will cautiously hydrate her. (2) UTI (urinary tract infection) Is this a current diagnosis for this admission?: Yes Plan: Patient has pyuria without urinary symptoms. (3) Hypertension Qualifiers: Hypertension type: essential hypertension Qualified Code(s): I10 - Essential (primary) hypertension Is this a current diagnosis for this admission?: Yes Plan: Continue her home medications (4) Morbid obesity Is this a current diagnosis for this admission?: Yes Plan: Patient advised to do lifestyle modification. (5) Bipolar disorder Is this a current diagnosis for this admission?: Yes Plan: Continue home medications and follow-up with her primary psychiatrist as outpatient. (6) History of obstructive sleep apnea Is this a current diagnosis for this admission?: Yes Plan: Patient not on CPAP.
[2018-09-20] MEDS: METRONIDAZOLE 500 MG TABLET PO SCH ×2 (13:10→21:21)
[2018-09-20] MEDS ORDERED: NICOTINE 14 MG/24 HR PATCH.TD24 TD PRN (13:56)
[2018-09-20] MEDS ORDERED: LORATADINE 10 MG TABLET PO SCH (22:00)
[2018-09-20] MEDS ORDERED: CLONIDINE HCL 0.1 MG TABLET PO SCH (22:00)
[2018-09-20] MEDS ORDERED: ASPIRIN 81 MG TABLET, CHEWABLE PO SCH (22:00)
[2018-09-21] MEDS: VANCOMYCIN HCL INJ 500 MG VIAL PO SCH ×2 (05:56→12:26)
[2018-09-21] MEDS: METRONIDAZOLE 500 MG TABLET PO SCH ×2 (05:56→13:23)
[2018-09-21] MEDS: HEPARIN SOD (PORCINE) 5,000 UNIT/ML 1 ML SYRINGE SUBCUT SCH ×2 (05:57→14:44)
[2018-09-21] MEDS ORDERED: FUROSEMIDE 20 MG TABLET PO SCH (08:00)
[2018-09-21] MEDS ORDERED: FUROSEMIDE 80 MG TABLET PO SCH (08:00)
[2018-09-21] MEDS: PANTOPRAZOLE SODIUM 40 MG VIAL IV SCH (09:08)
[2018-09-21] MEDS: LISINOPRIL 10 MG TABLET PO SCH (09:09)
[2018-09-21] MEDS: PREDNISONE 20 MG TABLET PO SCH (09:09)
[2018-09-21] MEDS ORDERED: MULTIVITAMIN TABLET PO SCH (10:00)
[2018-09-21] MEDS ORDERED: MULTIVIT WITH CALCIUM IRON MIN PO SCH (10:00)
[2018-09-21] MEDS ORDERED: [UNRECOGNIZED DRUG - OTHER] PO SCH (10:00)
--- NOTE | 2018-09-21 10:40 | PDOC DISCHARGE SUMMARY ---
General - Admit/Disc Date/PCP Admission Date/Primary Care Provider: 09/19/18 22:37 K V XOCHILT BRITTON MD Discharge Date: 09/21/18 - Discharge Diagnosis (1) Nausea vomiting diarrhea due to C. diffi Is this a current diagnosis for this admission?: Yes (2) UTI (urinary tract infection) Is this a current diagnosis for this admission?: Yes (3) Hypertension Is this a current diagnosis for this admission?: Yes (4) Morbid obesity Is this a current diagnosis for this admission?: Yes (5) Bipolar disorder Is this a current diagnosis for this admission?: Yes (6) History of obstructive sleep apnea Is this a current diagnosis for this admission?: Yes - Additional Information Home Medications: Aspirin [Adult Low Dose Aspirin EC] 81 mg PO QHS 09/20/18 Atorvastatin Calcium [Lipitor 10 mg Tablet] 10 mg PO QHS 09/20/18 Cetirizine HCl [Zyrtec 10 mg Tablet] 10 mg PO QHS 09/20/18 Clonidine HCl [Catapres 0.1 mg Tablet] 0.1 mg PO QHS 09/20/18 Cyclophosphamide [Cytoxan 50 mg Tablet] 300 mg PO DAILY 09/20/18 Furosemide [Lasix 40 mg Tablet] 40 mg PO 1400 09/20/18 Furosemide [Lasix 40 mg Tablet] 80 mg PO QAM 09/20/18 Lisinopril [Prinivil 40 mg Tablet] 40 mg PO QHS 09/20/18 Multivitamin [One-A-Day Essential] 1 each PO DAILY 09/20/18 Ondansetron HCl [Zofran 4 mg Tablet] 4 mg PO Q6HP PRN 09/20/18 History of Present Illness History of Present Illness: MONTSERRAT ALSTON is a 33 year old female with a past medical history of morbid obesity, obstructive sleep apnea, tobacco dependent and membranous glomerulopathy on immunosuppressive prednisone times 30 days. Patient presents with 24 hours of nausea, diarrhea, fever and polyuria. In the emergency room she is found to have fever of 101.4, tachycardia, pyuria and C. difficile positive stool. She receives IV fluids and referred to the hospitalist for admission. Patient admits to several days of polyuria, denies suspect meal, recent antibiotics or [id number] medications. Hospital Course Hospital Course: This is a 31 years old black female patient with past medical history of bipolar disorder, hypertension, obstructive sleep apnea, tobacco dependence, morbid obesity and history of membranous glomerulonephritis presented with chief complaint of nausea vomiting abdominal pain and diarrhea. Her stool for C. difficile colitis turn positive. Patient is being managed with oral vancomycin and hydration. I added Flagyl to her regimen. Her diarrhea has subsided. Her vital signs and blood works are unremarkable. I seen patient resting in bed comfortably. She is awake alert and oriented. Patient is stable enough to be discharged today and follow-up with her primary occupational medicine specialist Dr. Britton. I will send her home with vancomycin 125 mg p.o. every 6 hours and Flagyl 500 mg p.o. 3 times daily and 7 days course of prednisone 80 mg p.o. daily until she visited her primary occupational medicine specialist Physical Exam Vital Signs: Temp Pulse Resp BP Pulse Ox 98.4 F 97 15 125/53 L 95 09/20/18 23:52 09/20/18 23:52 09/20/18 23:52 09/20/18 23:52 09/20/18 23:52 Intake & Output 09/20/18 09/21/18 09/22/18 06:59 06:59 06:59 Intake Total 1434 2600 Output Total 200 100 Balance 1234 2500 Weight 164.7 kg 164.9 kg General appearance: PRESENT: morbidly obese Head exam: PRESENT: atraumatic, normocephalic Eye exam: PRESENT: conjunctiva pink, EOMI, PERRLA. ABSENT: scleral icterus Ear exam: PRESENT: normal external ear exam Mouth exam: PRESENT: moist, tongue midline Neck exam: ABSENT: carotid bruit, JVD, lymphadenopathy, thyromegaly Respiratory exam: PRESENT: clear to auscultation stanislaw. ABSENT: rales, rhonchi, wheezes Cardiovascular exam: PRESENT: RRR. ABSENT: diastolic murmur, rubs, systolic murmur Pulses: PRESENT: normal dorsalis pedis pul Vascular exam: PRESENT: normal capillary refill GI/Abdominal exam: PRESENT: normal bowel sounds, soft. ABSENT: distended, guarding, mass, organolmegaly, rebound, tenderness Rectal exam: PRESENT: deferred Extremities exam: PRESENT: full ROM. ABSENT: calf tenderness, clubbing, pedal edema Neurological exam: PRESENT: alert, awake, oriented to person, oriented to place, oriented to time, oriented to situation, CN II-XII grossly intact. ABSENT: motor sensory deficit Psychiatric exam: PRESENT: appropriate affect, normal mood. ABSENT: homicidal ideation, suicidal ideation Skin exam: PRESENT: dry, intact, warm. ABSENT: cyanosis, rash Results Laboratory Results: 09/20/18 04:24 09/20/18 04:24 Qualifiers - * PATIENT BEING DISCHARGED WITH ANY OF THE FOLLOWING DIAGNOSIS: No
[2018-09-21 14:07] VITALS: BP 139/73
== END 2018-09-21 14:48 | disposition home or self-care (01) | DRG 372 ==
LOC: ER 17:35 → EH 22:37 → 5 09-20 00:42
PROVIDERS: ADMIT Internal Medicine; ATTEND Internal Medicine
PROC: 3E0F73Z Introduction of Anti-inflammatory into Respiratory Tract, Via Natural or Artificial Opening (ICD-10-PCS; principal; 2018-09-20)
DX: A04.72 Enterocolitis due to Clostridium difficile, not specified as recurrent (principal); N39.0 Urinary tract infection, site not specified; Z68.43 Body mass index [BMI] 50.0-59.9, adult; I10 Essential (primary) hypertension; E66.01 Morbid (severe) obesity due to excess calories; G47.33 Obstructive sleep apnea (adult) (pediatric); F31.9 Bipolar disorder, unspecified; K21.9 Gastro-esophageal reflux disease without esophagitis; L30.9 Dermatitis, unspecified; F41.9 Anxiety disorder, unspecified; F17.210 Nicotine dependence, cigarettes, uncomplicated; Z79.899 Other long term (current) drug therapy; Z79.82 Long term (current) use of aspirin; Z83.3 Family history of diabetes mellitus; Z82.49 Family history of ischemic heart disease and other diseases of the circulatory system
CPT/HCPCS: 36415; 80048; 80053; 81001; 83690; 83735; 84703; 85025; 87040; 87086; 87493; 99282; J1885; J2405; J3370; J3490; J7030; J7060; J7512; S0164

== ENCOUNTER → 2018-11-09 | Outpatient (CLI) | payer MEDICAID ==
[2018-11-09 17:39] LABS: HEMATOCRIT 38.7 % (36.0-47.0); HEMOGLOBIN 12.7 g/dL (12.0-15.5); MEAN CORPUSCULAR HGB CONC 32.9 g/dL (32.0-36.0); MEAN CORPUSCULAR VOLUME 91 fl (80-97); PLATELET COUNT 291 10^3/uL (150-450); RED BLOOD COUNT 4.25 10^6/uL (3.72-5.28); RED CELL DISTRIBUTION WIDTH 15.6 % (11.5-14.0); WHITE BLOOD COUNT 9.5 10^3/uL (4.0-10.5)
[2018-11-09 17:40] LABS: APPEARANCE,URINE CLEAR; BILIRUBIN,URINE NEGATIVE (NEGATIVE); COLOR,URINE STRAW; GLUCOSE, URINE NEGATIVE (NEGATIVE); KETONES,URINE NEGATIVE (NEGATIVE); LEUKOCYTE ESTERASE,URINE NEGATIVE (NEGATIVE); NITRITE,URINE NEGATIVE (NEGATIVE); PROTEIN,URINE >=500 mg/dL (NEGATIVE); URINE SPECIFIC GRAVITY 1.011; UROBILINOGEN,URINE NEGATIVE mg/dL (<2.0)
[2018-11-09 17:54] LABS: ANION GAP 6 (5-19); BLOOD UREA NITROGEN 18 mg/dL (7-20); CALCIUM 8.6 mg/dL (8.4-10.2); CARBON DIOXIDE 27 mmol/L (22-30); CHLORIDE 103 mmol/L (98-107); GLUCOSE 196 mg/dL (75-110); POTASSIUM 3.9 mmol/L (3.6-5.0); SODIUM 136.3 mmol/L (137-145)
[2018-11-09 18:05] LABS: URINE CREATININE 44.3 mg/dL (16-327)
[2018-11-09 18:16] LABS: UR PRO/CREAT RATIO RESULT 9.5 mg/mg (0.0-0.2); URINE PROTEIN 422.2 mg/dL (<12)
[2018-11-09 18:24] LABS: ABSOLUTE LYMPHOCYTES# (MANUAL) 0.4 10^3/uL (0.5-4.7); ABSOLUTE MONOCYTES # (MANUAL) 0.5 10^3/uL (0.1-1.4); ABSOLUTE NEUTROPHILS# (MANUAL) 8.6 10^3/uL (1.7-8.2); BAND NEUTROPHILS % (MANUAL) 1 % (3-5); BASOPHILS % (MANUAL) 0 % (0-2); EOSINOPHILS % (MANUAL) 0 % (0-6); LYMPHOCYTES % (MANUAL) 4 % (13-45); MONOCYTES % (MANUAL) 5 % (3-13); SEGMENTED NEUTROPHILS % (MAN) 90 % (42-78); TOTAL CELLS COUNTED 100
[2018-11-09 18:26] LABS: ANISOCYTOSIS SLIGHT; PLATELET COMMENT ADEQUATE
== END ==
LOC: OD 16:38
PROVIDERS: ATTEND Internal Medicine Nephrology
DX: I10 Essential (primary) hypertension (principal); R60.9 Edema, unspecified; R80.9 Proteinuria, unspecified
CPT/HCPCS: 36415; 80048; 81001; 82570; 83735; 84156; 85025

== ENCOUNTER → 2019-01-12 | Outpatient (CLI) | payer MEDICAID ==
[2019-01-12 15:05] LABS: ABSOLUTE EOSINOPHILS # (AUTO) 0.1 10^3/uL (0.0-0.6); ABSOLUTE LYMPHOCYTES (AUTO) 0.7 10^3/uL (0.5-4.7); ABSOLUTE MONOCYTES (AUTO) 0.5 10^3/uL (0.1-1.4); ABSOLUTE NEUT (AUTO) 3.6 10^3/uL (1.7-8.2); BASOPHILS % (AUTO) 0.9 % (0-2); EOSINOPHILS % (AUTO) 1.6 % (0-6); HEMATOCRIT 39.3 % (36.0-47.0); HEMOGLOBIN 13.2 g/dL (12.0-15.5); LYMPHOCYTES % (AUTO) 14.1 % (13-45); MEAN CORPUSCULAR HEMOGLOBIN 30.1 pg (27.0-33.4); MEAN CORPUSCULAR HGB CONC 33.6 g/dL (32.0-36.0); MEAN CORPUSCULAR VOLUME 90 fl (80-97); MONOCYTES % (AUTO) 9.5 % (3-13); PLATELET COUNT 391 10^3/uL (150-450); RED BLOOD COUNT 4.38 10^6/uL (3.72-5.28); RED CELL DISTRIBUTION WIDTH 13.3 % (11.5-14.0); SEGMENTED NEUTROPHILS % (AUTO) 73.9 % (42-78); TOTAL CELLS COUNTED % (AUTO) 100 %; WHITE BLOOD COUNT 4.9 10^3/uL (4.0-10.5)
[2019-01-12 15:16] LABS: APPEARANCE,URINE SLIGHTLY-CLOUDY; BILIRUBIN,URINE NEGATIVE (NEGATIVE); COLOR,URINE YELLOW; GLUCOSE, URINE NEGATIVE (NEGATIVE); KETONES,URINE NEGATIVE (NEGATIVE); LEUKOCYTE ESTERASE,URINE TRACE (NEGATIVE); NITRITE,URINE NEGATIVE (NEGATIVE); PROTEIN,URINE >=500 mg/dL (NEGATIVE); URINE SPECIFIC GRAVITY 1.007; UROBILINOGEN,URINE NEGATIVE mg/dL (<2.0)
[2019-01-12 15:24] LABS: ALBUMIN 3.1 g/dL (3.5-5.0); ALKALINE PHOSPHATASE 74 U/L (38-126); ANION GAP 6 (5-19); ASPARTATE AMINO TRANSFERASE 28 U/L (14-36); BILIRUBIN,DIRECT 0.2 mg/dL (0.0-0.4); BILIRUBIN,TOTAL 0.2 mg/dL (0.2-1.3); BLOOD UREA NITROGEN 10 mg/dL (7-20); CALCIUM 9.2 mg/dL (8.4-10.2); CARBON DIOXIDE 30 mmol/L (22-30); CHLORIDE 102 mmol/L (98-107); GLUCOSE 153 mg/dL (75-110); POTASSIUM 3.9 mmol/L (3.6-5.0)
[2019-01-12 16:13] LABS: URINE CREATININE 34.7 mg/dL (16-327)
[2019-01-12 16:22] LABS: UR PRO/CREAT RATIO RESULT 8.9 mg/mg (0.0-0.2); URINE PROTEIN 309.6 mg/dL (<12)
== END ==
LOC: OD 14:13
PROVIDERS: ATTEND Internal Medicine Nephrology
DX: N04.9 Nephrotic syndrome with unspecified morphologic changes (principal); E83.41 Hypermagnesemia; R80.9 Proteinuria, unspecified
CPT/HCPCS: 36415; 80053; 81001; 82570; 83735; 84156; 85025

== ENCOUNTER → 2019-02-23 | Outpatient (CLI) | payer MEDICAID ==
[2019-02-23 15:09] LABS: HEMATOCRIT 39.3 % (36.0-47.0); MEAN CORPUSCULAR HEMOGLOBIN 29.8 pg (27.0-33.4); MEAN CORPUSCULAR HGB CONC 33.1 g/dL (32.0-36.0); MEAN CORPUSCULAR VOLUME 90 fl (80-97); RED BLOOD COUNT 4.36 10^6/uL (3.72-5.28); RED CELL DISTRIBUTION WIDTH 13.6 % (11.5-14.0); WHITE BLOOD COUNT 9.9 10^3/uL (4.0-10.5)
[2019-02-23 15:10] LABS: AMORPHOUS SEDIMENT,URINE TRACE /HPF; APPEARANCE,URINE CLOUDY; BILIRUBIN,URINE NEGATIVE (NEGATIVE); COLOR,URINE YELLOW; GLUCOSE, URINE NEGATIVE (NEGATIVE); KETONES,URINE NEGATIVE (NEGATIVE); LEUKOCYTE ESTERASE,URINE TRACE (NEGATIVE); NITRITE,URINE NEGATIVE (NEGATIVE); PROTEIN,URINE >=500 mg/dL (NEGATIVE); URINE SPECIFIC GRAVITY 1.022; UROBILINOGEN,URINE NEGATIVE mg/dL (<2.0)
[2019-02-23 15:28] LABS: ABSOLUTE LYMPHOCYTES# (MANUAL) 0.3 10^3/uL (0.5-4.7); ABSOLUTE MONOCYTES # (MANUAL) 0.1 10^3/uL (0.1-1.4); BAND NEUTROPHILS % (MANUAL) 1 % (3-5); BASOPHILS % (MANUAL) 0 % (0-2); EOSINOPHILS % (MANUAL) 0 % (0-6); LYMPHOCYTES % (MANUAL) 3 % (13-45); MONOCYTES % (MANUAL) 1 % (3-13); SEGMENTED NEUTROPHILS % (MAN) 95 % (42-78); TOTAL CELLS COUNTED 100
[2019-02-23 15:29] LABS: ALBUMIN 2.9 g/dL (3.5-5.0); ALKALINE PHOSPHATASE 66 U/L (38-126); ANION GAP 6 (5-19); ASPARTATE AMINO TRANSFERASE 25 U/L (14-36); BILIRUBIN,DIRECT 0.2 mg/dL (0.0-0.4); BILIRUBIN,TOTAL 0.2 mg/dL (0.2-1.3); BLOOD UREA NITROGEN 12 mg/dL (7-20); CALCIUM 8.8 mg/dL (8.4-10.2); CARBON DIOXIDE 27 mmol/L (22-30); CHLORIDE 105 mmol/L (98-107); GLUCOSE 175 mg/dL (75-110); PLATELET CLUMPS PRESENT; PLATELET COMMENT ADEQUATE; PLATELET COUNT 286 10^3/uL (150-450); POTASSIUM 4.1 mmol/L (3.6-5.0); RBC MORPHOLOGY COMMENT NORMO-CYTIC/CHROMIC; TOTAL PROTEIN 5.6 g/dL (6.3-8.2); TOXIC VACUOLATION PRESENT
[2019-02-23 15:31] LABS: URINE CREATININE 116.8 mg/dL (16-327)
[2019-02-23 16:40] LABS: URINE PROTEIN 1279.8 mg/dL (<12)
== END ==
LOC: OD 14:17
PROVIDERS: ATTEND Internal Medicine Nephrology
DX: I10 Essential (primary) hypertension (principal); N04.9 Nephrotic syndrome with unspecified morphologic changes
CPT/HCPCS: 36415; 80053; 81001; 82570; 83735; 84156; 85025

== ENCOUNTER → 2019-03-03 | Outpatient (CLI) | payer MEDICAID | LOC: OD 12:52 | PROVIDERS: ATTEND Physician Assistant Medical | DX: E83.42 Hypomagnesemia (principal) | CPT/HCPCS: 36415; 83735 ==

== ENCOUNTER → 2019-03-31 | Outpatient (CLI) | payer MEDICAID ==
[2019-03-31 10:44] LABS: ABSOLUTE EOSINOPHILS # (AUTO) 0.1 10^3/uL (0.0-0.6); ABSOLUTE LYMPHOCYTES (AUTO) 0.3 10^3/uL (0.5-4.7); ABSOLUTE MONOCYTES (AUTO) 0.4 10^3/uL (0.1-1.4); ABSOLUTE NEUT (AUTO) 2.3 10^3/uL (1.7-8.2); BASOPHILS % (AUTO) 1.2 % (0-2); EOSINOPHILS % (AUTO) 1.8 % (0-6); HEMATOCRIT 37.8 % (36.0-47.0); HEMOGLOBIN 12.5 g/dL (12.0-15.5); LYMPHOCYTES % (AUTO) 10.1 % (13-45); MEAN CORPUSCULAR HEMOGLOBIN 29.8 pg (27.0-33.4); MEAN CORPUSCULAR HGB CONC 33.1 g/dL (32.0-36.0); MEAN CORPUSCULAR VOLUME 90 fl (80-97); MONOCYTES % (AUTO) 11.8 % (3-13); PLATELET COUNT 400 10^3/uL (150-450); RED CELL DISTRIBUTION WIDTH 14.6 % (11.5-14.0); SEGMENTED NEUTROPHILS % (AUTO) 75.1 % (42-78); TOTAL CELLS COUNTED % (AUTO) 100 %
[2019-03-31 11:06] LABS: APPEARANCE,URINE SLIGHTLY-CLOUDY; BILIRUBIN,URINE NEGATIVE (NEGATIVE); COLOR,URINE STRAW; GLUCOSE, URINE NEGATIVE (NEGATIVE); KETONES,URINE NEGATIVE (NEGATIVE); LEUKOCYTE ESTERASE,URINE TRACE (NEGATIVE); NITRITE,URINE NEGATIVE (NEGATIVE); PROTEIN,URINE 30 mg/dL (NEGATIVE); UR PRO/CREAT RATIO RESULT 6.8 mg/mg (0.0-0.2); URINE CREATININE 7.3 mg/dL (16-327); URINE PROTEIN 49.9 mg/dL (<12); URINE SPECIFIC GRAVITY 1.005; UROBILINOGEN,URINE NEGATIVE mg/dL (<2.0)
[2019-03-31 11:09] LABS: ALBUMIN 3.4 g/dL (3.5-5.0); ALKALINE PHOSPHATASE 62 U/L (38-126); ANION GAP 9 (5-19); ASPARTATE AMINO TRANSFERASE 22 U/L (14-36); BILIRUBIN,TOTAL 0.2 mg/dL (0.2-1.3); BLOOD UREA NITROGEN 11 mg/dL (7-20); CALCIUM 9.4 mg/dL (8.4-10.2); CARBON DIOXIDE 29 mmol/L (22-30); CHLORIDE 103 mmol/L (98-107); GLUCOSE 120 mg/dL (75-110); POTASSIUM 4.1 mmol/L (3.6-5.0); TOTAL PROTEIN 6.3 g/dL (6.3-8.2)
== END ==
LOC: OD 09:50
PROVIDERS: ATTEND Internal Medicine Nephrology
DX: E83.42 Hypomagnesemia (principal); E66.01 Morbid (severe) obesity due to excess calories; N04.9 Nephrotic syndrome with unspecified morphologic changes; I10 Essential (primary) hypertension; R80.9 Proteinuria, unspecified
CPT/HCPCS: 36415; 80053; 81001; 82570; 83036; 83735; 84156; 85025

== ENCOUNTER 2019-05-17 09:54 | Emergency (ER) | payer MEDICAID ==
[2019-05-17] MEDS ORDERED: NORMAL SALINE 1000 ML 1,000 ML IV ONE (10:48)
--- NOTE | 2019-05-17 10:50 | ER Document Report ---
ED Medical Screen (RME) - General Chief Complaint: Abnormal Lab Results Stated Complaint: DRY MOUTH,THIRSTY,FREQUENT URINATION Time Seen by Provider: 05/17/19 10:45 Primary Care Provider: Simba FISH MD [Primary Care Provider] - Follow up as needed Mode of Arrival: Ambulatory Information source: Patient Notes: Patient states she had outpatient lab work done and was called today advised that her blood sugar was almost 500 and that her A1c was 9. Patient complains of dry mouth. Patient denies any nausea vomiting or abdominal tenderness. Patient states that she had not previously been diagnosed with diabetes. Patient does have a history of hypertension dyslipidemia, bipolar disorder and glomerulonephritis. I have greeted and performed a rapid initial assessment of this patient. A comprehensive ED assessment and evaluation of the patient, analysis of test results and completion of the medical decision making process will be conducted by additional ED providers. TRAVEL OUTSIDE OF THE [place] IN LAST 30 DAYS: No - Related Data Allergies/Adverse Reactions: No Known Allergies Allergy (Verified 09/19/18 18:18) Home Medications: blood pressure med. high cholesterol med Past Medical History - Social History Chew tobacco use (# tins/day): No Frequency of alcohol use: None Drug Abuse: None Family history: Reviewed & Not Pertinent - Past Medical History Cardiac Medical History: Reports: Hx Hypertension Denies: Hx Coronary Artery Disease, Hx Heart Attack Pulmonary Medical History: Denies: Hx Asthma, Hx Bronchitis, Hx COPD, Hx Pneumonia Neurological Medical History: Reports: Hx Migraine. Denies: Hx Cerebrovascular Accident, Hx Seizures Renal/ Medical History: Reports: Hx Kidney Stones. Denies: Hx Peritoneal Dialysis GI Medical History: Reports: Hx Gastroesophageal Reflux Disease Musculoskeltal Medical History: Denies Hx Arthritis, Reports Hx Musculoskeletal Trauma Skin Medical History: Reports Hx Cellulitis, Reports Hx Eczema Psychiatric Medical History: Reports: Hx Anxiety, Hx Bipolar Disorder, Hx Depression - Immunizations Hx Diphtheria, Pertussis, Tetanus Vaccination: No Physical Exam - Vital signs Vitals: Temp Pulse Resp BP Pulse Ox 98.3 F 96 18 141/79 H 96 05/17/19 10:26 05/17/19 10:26 05/17/19 10:26 05/17/19 10:26 05/17/19 10:26 - General General appearance: Appears well, Alert Notes: Dry mouth - Cardiovascular Rhythm: No: Tachycardia Heart sounds: S1 appreciated, S2 appreciated Course - Vital Signs Vital signs: Temp Pulse Resp BP Pulse Ox 98.3 F 96 18 141/79 H 96 05/17/19 10:44 05/17/19 10:44 05/17/19 10:44 05/17/19 10:44 05/17/19 10:44 Doctor's Discharge - Discharge Referrals: Simba FISH MD [Primary Care Provider] - Follow up as needed
[2019-05-17 12:32] LABS: ABSOLUTE LYMPHOCYTES (AUTO) 0.4 10^3/uL (0.5-4.7); ABSOLUTE MONOCYTES (AUTO) 0.3 10^3/uL (0.1-1.4); BASOPHILS % (AUTO) 0.5 % (0-2); EOSINOPHILS % (AUTO) 0.8 % (0-6); HEMATOCRIT 42.5 % (36.0-47.0); HEMOGLOBIN 14.2 g/dL (12.0-15.5); LYMPHOCYTES % (AUTO) 7.4 % (13-45); MEAN CORPUSCULAR HEMOGLOBIN 30.3 pg (27.0-33.4); MEAN CORPUSCULAR HGB CONC 33.5 g/dL (32.0-36.0); MEAN CORPUSCULAR VOLUME 90 fl (80-97); MONOCYTES % (AUTO) 6.4 % (3-13); PLATELET COUNT 280 10^3/uL (150-450); RED CELL DISTRIBUTION WIDTH 14.9 % (11.5-14.0); SEGMENTED NEUTROPHILS % (AUTO) 84.9 % (42-78); TOTAL CELLS COUNTED % (AUTO) 100 %; WHITE BLOOD COUNT 4.7 10^3/uL (4.0-10.5)
[2019-05-17 12:55] LABS: ALBUMIN 3.7 g/dL (3.5-5.0); ALKALINE PHOSPHATASE 94 U/L (38-126); ANION GAP 9 (5-19); ASPARTATE AMINO TRANSFERASE 21 U/L (14-36); BILIRUBIN,DIRECT 0.1 mg/dL (0.0-0.4); BILIRUBIN,TOTAL 0.5 mg/dL (0.2-1.3); BLOOD UREA NITROGEN 12 mg/dL (7-20); CALCIUM 9.7 mg/dL (8.4-10.2); CARBON DIOXIDE 31 mmol/L (22-30); CHLORIDE 98 mmol/L (98-107); GLUCOSE 264 mg/dL (75-110); POTASSIUM 4.1 mmol/L (3.6-5.0); TOTAL PROTEIN 6.9 g/dL (6.3-8.2)
[2019-05-17 13:45] LABS: VENOUS BLOOD BASE EXCESS 6.1 mmol/L; VENOUS BLOOD HCO3 32.2 mmol/L (20-32); VENOUS BLOOD PCO2 51.7 mmHg (35-63); VENOUS BLOOD PH 7.41 (7.30-7.42)
--- NOTE | 2019-05-17 18:29 | ER Document Report ---
ED General - General Chief Complaint: Abnormal Lab Results Stated Complaint: DRY MOUTH,THIRSTY,FREQUENT URINATION Time Seen by Provider: 05/17/19 10:45 Primary Care Provider: Simba FISH MD [ACTIVE STAFF] - Follow up as needed Mode of Arrival: Ambulatory TRAVEL OUTSIDE OF THE [place] IN LAST 30 DAYS: No - HPI Notes: 33BF w/ h/o glomerulonephritis, htn, on long-standing low dose prednisoe, who comes to ED today ambulatory (accompanied by sivan and 2 young children) after receiving call from [facility] about her labs 3 d/a notable for [Glu] 500 and [A1C] 9. denies h/o DM, but says been on same dose prednisone very long time. denies any abd pain or n/v. no TOBIAS, vision change. says has been peeing more. also takes lasix usually for chronic b/l leg edema tiffanie recalls. denies any (near) passing out or chest pain or lapse in her meds. denies f/c/s or recent illnesses or lapses or changes in any of her meds. - Related Data Allergies/Adverse Reactions: No Known Allergies Allergy (Verified 09/19/18 18:18) Home Medications: blood pressure med. high cholesterol med Past Medical History - General Information source: Patient - Social History Smoking Status: Current Every Day Smoker Chew tobacco use (# tins/day): No Frequency of alcohol use: None Drug Abuse: None Family History: Reviewed & Not Pertinent, DM, Hypertension Patient has suicidal ideation: No Patient has homicidal ideation: No - Past Medical History Cardiac Medical History: Reports: Hx Hypertension Denies: Hx Coronary Artery Disease, Hx Heart Attack Pulmonary Medical History: Denies: Hx Asthma, Hx Bronchitis, Hx COPD, Hx Pneumonia Neurological Medical History: Reports: Hx Migraine. Denies: Hx Cerebrovascular Accident, Hx Seizures Renal/ Medical History: Reports: Hx Kidney Stones. Denies: Hx Peritoneal Dialysis GI Medical History: Reports: Hx Gastroesophageal Reflux Disease Musculoskeletal Medical History: Denies Hx Arthritis, Reports Hx Musculoskeletal Trauma Skin Medical History: Reports Hx Cellulitis, Reports Hx Eczema Psychiatric Medical History: Reports: Hx Anxiety, Hx Bipolar Disorder, Hx Depression - Immunizations Hx Diphtheria, Pertussis, Tetanus Vaccination: No Hx Pneumococcal Vaccination: 03/09/12 Review of Systems - Review of Systems Constitutional: No symptoms reported EENT: No symptoms reported Cardiovascular: No symptoms reported Respiratory: No symptoms reported Gastrointestinal: No symptoms reported Genitourinary: No symptoms reported Female Genitourinary: No symptoms reported Musculoskeletal: No symptoms reported Skin: No symptoms reported Hematologic/Lymphatic: No symptoms reported Neurological/Psychological: No symptoms reported Physical Exam - Vital signs Vitals: Temp Pulse Resp BP Pulse Ox 98.3 F 96 18 141/79 H 96 05/17/19 10:26 05/17/19 10:26 05/17/19 10:26 05/17/19 10:26 05/17/19 10:26 Interpretation: Normal - General General appearance: Appears well, Alert - HEENT Head: Normocephalic, Atraumatic Eyes: Normal Pupils: PERRL - Respiratory Respiratory status: No respiratory distress Chest status: Nontender Breath sounds: Normal Chest palpation: Normal - Cardiovascular Rhythm: Regular Heart sounds: Normal auscultation Murmur: No - Abdominal Inspection: Normal Distension: No distension Bowel sounds: Normal Tenderness: Nontender Organomegaly: No organomegaly - Back Back: Normal, Nontender - Extremities General upper extremity: Normal inspection, Nontender, Normal color, Normal ROM, Normal temperature General lower extremity: Normal inspection, Nontender, Normal color, Normal ROM, Normal temperature, Normal weight bearing. No: He's sign - Neurological Neuro grossly intact: Yes Cognition: Normal Orientation: AAOx4 Kana Coma Scale Eye Opening: Spontaneous [place] Coma Scale Verbal: Oriented Kana Coma Scale Motor: Obeys Commands Kana Coma Scale Total: 15 Speech: Normal Motor strength normal: LUE, RUE, LLE, RLE Sensory: Normal - Psychological Associated symptoms: Normal affect, Normal mood - Skin Skin Temperature: Warm Skin Moisture: Dry Skin Color: Normal Course - Re-evaluation Re-evalutation: 05/28/19 11:26 pt sugar on arrival to ED 239. gave 1L ivns as appeared clinically dehydrated also. no evidence of dka. no other lab abnormalities. vss while in ED. discussed w/ patient f/u plan and that today no evidence of dka, but will bve discussion w/ primary and nephrology docs about weighing prednisone needs and making changes in lifestyle and/or meds for overall sugar control to prevent further compounding - Vital Signs Vital signs: Temp Pulse Resp BP Pulse Ox 98.7 F 93 20 131/82 H 95 05/17/19 18:34 05/17/19 18:34 05/17/19 18:34 05/17/19 18:34 05/17/19 18:34 - Laboratory Result Diagrams: 05/17/19 12:20 05/17/19 12:20 Laboratory results interpreted by me: 05/17/19 05/17/19 05/17/19 11:25 12:20 12:20 RDW 14.9 H Lymph % (Auto) 7.4 L Absolute Lymphs (auto) 0.4 L Seg Neutrophils % 84.9 H VBG HCO3 Carbon Dioxide 31 H Creatinine 0.48 L Glucose 264 H POC Glucose 299 H 05/17/19 05/17/19 13:17 14:52 RDW Lymph % (Auto) Absolute Lymphs (auto) Seg Neutrophils % VBG HCO3 32.2 H Carbon Dioxide Creatinine Glucose POC Glucose 224 H Discharge - Discharge Clinical Impression: Hyperglycemia, drug-induced, Hyperglycemia without ketosis Disposition: HOME, SELF-CARE Additional Instructions: Today your magnesium level was within normal limits and your sodium was in within normal limits your sugar was mildly elevated in the 200s when we checked it on your fingerstick and on the blood work. We did a VBG or venous blood gas to make sure you are not in any DKA. This was within normal limits. We gave you a liter of normal saline fluid and will need you to follow-up with both your [facility] as well as your primary doctor to weigh the risks and benefits of your high blood sugars caused by your steroids which you have needed for your glomerular disease. Therefore call first thing tomorrow to set up an appointment with your primary care doctor and then your [facility]. Otherwise continue to take all your other medicines as prescribed. Forms: Return to Work Referrals: Simba FISH MD [ACTIVE STAFF] - Follow up as needed
[2019-05-17 18:35] VITALS: BP 131/82
== END 2019-05-17 18:51 | disposition home or self-care (01) ==
LOC: ER 09:54
DX: R73.9 Hyperglycemia, unspecified (principal); T50.905A Adverse effect of unspecified drugs, medicaments and biological substances, initial encounter; I10 Essential (primary) hypertension; N05.9 Unspecified nephritic syndrome with unspecified morphologic changes; Z79.52 Long term (current) use of systemic steroids; Z79.899 Other long term (current) drug therapy; F17.200 Nicotine dependence, unspecified, uncomplicated
CPT/HCPCS: 99283; 96360; 36415; 82962; 83735; 84703; 85025; 80053; 82803; J7030

== ENCOUNTER → 2019-08-17 | Outpatient (CLI) | payer MEDICAID ==
[2019-08-17 16:11] LABS: ABSOLUTE LYMPHOCYTES (AUTO) 0.5 10^3/uL (0.5-4.7); ABSOLUTE MONOCYTES (AUTO) 0.4 10^3/uL (0.1-1.4); ABSOLUTE NEUT (AUTO) 2.7 10^3/uL (1.7-8.2); BASOPHILS % (AUTO) 0.6 % (0-2); EOSINOPHILS % (AUTO) 0.7 % (0-6); HEMATOCRIT 36.5 % (36.0-47.0); HEMOGLOBIN 12.3 g/dL (12.0-15.5); LYMPHOCYTES % (AUTO) 13.5 % (13-45); MEAN CORPUSCULAR HEMOGLOBIN 31.3 pg (27.0-33.4); MEAN CORPUSCULAR HGB CONC 33.7 g/dL (32.0-36.0); MEAN CORPUSCULAR VOLUME 93 fl (80-97); MONOCYTES % (AUTO) 11.5 % (3-13); PLATELET COUNT 322 10^3/uL (150-450); RED BLOOD COUNT 3.93 10^6/uL (3.72-5.28); RED CELL DISTRIBUTION WIDTH 14.9 % (11.5-14.0); SEGMENTED NEUTROPHILS % (AUTO) 73.7 % (42-78); TOTAL CELLS COUNTED % (AUTO) 100 %; WHITE BLOOD COUNT 3.7 10^3/uL (4.0-10.5)
[2019-08-17 16:25] LABS: ALBUMIN 3.5 g/dL (3.5-5.0); ALKALINE PHOSPHATASE 69 U/L (38-126); ANION GAP 8 (5-19); ASPARTATE AMINO TRANSFERASE 21 U/L (14-36); BILIRUBIN,DIRECT 0.3 mg/dL (0.0-0.4); BILIRUBIN,TOTAL 0.3 mg/dL (0.2-1.3); BLOOD UREA NITROGEN 13 mg/dL (7-20); CALCIUM 9.5 mg/dL (8.4-10.2); CARBON DIOXIDE 30 mmol/L (22-30); CHLORIDE 100 mmol/L (98-107); GLUCOSE 113 mg/dL (75-110); TOTAL PROTEIN 6.9 g/dL (6.3-8.2)
== END ==
LOC: OD 15:14
PROVIDERS: ATTEND Internal Medicine Nephrology
DX: R80.1 Persistent proteinuria, unspecified (principal); N04.8 Nephrotic syndrome with other morphologic changes
CPT/HCPCS: 36415; 80053; 85025

== ENCOUNTER 2019-08-19 08:38 | Outpatient (CLI) | payer MEDICAID ==
[~2019-08-19 08:38] MED LIST changes: +ACETAMINOPHEN 325 MG TABLET PO PRN; +DIPHENHYDRAMINE HCL 50 MG CAPSULE PO PRN; -HEPARIN SOD (PORCINE) 5,000 UNIT/ML 1 ML SYRINGE SUBCUT SCH; +METHYLPREDNISOLONE SOD SUCC IV PRN; +NORMAL SALINE IV PRN; +RITUXIMAB 1,000 MG in NORMAL SALINE 500 ML IV PRN
[2019-08-19 09:18] VITALS: BP 136/75
== END 2019-08-19 15:12 | disposition home or self-care (01) ==
LOC: II 08:38 → 5TH 08:40 → II 15:12
PROVIDERS: ATTEND Internal Medicine Nephrology
DX: N04.8 Nephrotic syndrome with other morphologic changes (principal); R80.1 Persistent proteinuria, unspecified
CPT/HCPCS: 96413; 96415; 96375; J3490 ×2; J2930; J7040; J9312

== ENCOUNTER → 2019-08-31 | Outpatient (CLI) | payer MEDICAID ==
[2019-08-31 17:34] LABS: ABSOLUTE EOSINOPHILS # (AUTO) 0.1 10^3/uL (0.0-0.6); ABSOLUTE LYMPHOCYTES (AUTO) 0.4 10^3/uL (0.5-4.7); ABSOLUTE MONOCYTES (AUTO) 0.5 10^3/uL (0.1-1.4); ABSOLUTE NEUT (AUTO) 3.7 10^3/uL (1.7-8.2); BASOPHILS % (AUTO) 0.6 % (0-2); EOSINOPHILS % (AUTO) 1.5 % (0-6); HEMATOCRIT 37.1 % (36.0-47.0); HEMOGLOBIN 12.8 g/dL (12.0-15.5); LYMPHOCYTES % (AUTO) 9.3 % (13-45); MEAN CORPUSCULAR HEMOGLOBIN 31.4 pg (27.0-33.4); MEAN CORPUSCULAR HGB CONC 34.4 g/dL (32.0-36.0); MEAN CORPUSCULAR VOLUME 91 fl (80-97); MONOCYTES % (AUTO) 10.4 % (3-13); PLATELET COUNT 328 10^3/uL (150-450); RED BLOOD COUNT 4.06 10^6/uL (3.72-5.28); RED CELL DISTRIBUTION WIDTH 14.5 % (11.5-14.0); SEGMENTED NEUTROPHILS % (AUTO) 78.2 % (42-78); TOTAL CELLS COUNTED % (AUTO) 100 %; WHITE BLOOD COUNT 4.7 10^3/uL (4.0-10.5)
[2019-08-31 17:43] LABS: ALBUMIN 3.4 g/dL (3.5-5.0); ALKALINE PHOSPHATASE 66 U/L (38-126); ANION GAP 6 (5-19); ASPARTATE AMINO TRANSFERASE 26 U/L (14-36); BILIRUBIN,TOTAL 0.2 mg/dL (0.2-1.3); BLOOD UREA NITROGEN 15 mg/dL (7-20); CALCIUM 9.2 mg/dL (8.4-10.2); CARBON DIOXIDE 27 mmol/L (22-30); CHLORIDE 106 mmol/L (98-107); GLUCOSE 108 mg/dL (75-110); POTASSIUM 4.4 mmol/L (3.6-5.0); TOTAL PROTEIN 6.3 g/dL (6.3-8.2)
== END ==
LOC: OD 16:25
PROVIDERS: ATTEND Internal Medicine Nephrology
DX: N04.8 Nephrotic syndrome with other morphologic changes (principal); R80.1 Persistent proteinuria, unspecified
CPT/HCPCS: 36415; 80053; 85025

== ENCOUNTER 2019-09-02 08:10 | Outpatient (CLI) | payer MEDICAID ==
[2019-09-02] MEDS ORDERED: ACETAMINOPHEN 325 MG TABLET PO PRN ×2 (08:33→09:17)
[2019-09-02] MEDS ORDERED: DIPHENHYDRAMINE HCL 50 MG CAPSULE PO PRN ×2 (08:35→09:17)
[2019-09-02] MEDS ORDERED: NORMAL SALINE IV PRN (08:36)
[2019-09-02] MEDS ORDERED: METHYLPREDNISOLONE SOD SUCC IV PRN (08:36)
[2019-09-02] MEDS ORDERED: RITUXIMAB 1,000 MG in NORMAL SALINE 500 ML IV PRN (08:41)
[2019-09-02 08:59] VITALS: BP 131/61
[2019-09-02] MEDS ORDERED: DIPHENHYDRAMINE HCL 25 MG CAPSULE ONE (09:06)
[2019-09-02] MEDS ORDERED: ACETAMINOPHEN 325 MG TABLET ONE (09:06)
[2019-09-02] MEDS ORDERED: DIPHENHYDRAMINE HCL 25 MG CAPSULE PO PRN (09:16)
[2019-09-02] MEDS ORDERED: DIPHENHYDRAMINE HCL 50 MG CAPSULE PO SCH (12:00)
[2019-09-02] MEDS ORDERED: ACETAMINOPHEN 325 MG TABLET PO SCH (12:00)
== END 2019-09-02 14:09 | disposition home or self-care (01) ==
LOC: II 08:10 → 5TH 08:12 → II 14:09
PROVIDERS: ATTEND Internal Medicine Nephrology
DX: N04.8 Nephrotic syndrome with other morphologic changes (principal); R80.1 Persistent proteinuria, unspecified
CPT/HCPCS: 96413; 96415; J3490 ×2; J2930; J7040; J9312; 96375

== ENCOUNTER → 2019-10-04 | Outpatient (CLI) | payer MEDICAID ==
[2019-10-04 14:42] LABS: APPEARANCE,URINE CLEAR; BILIRUBIN,URINE NEGATIVE (NEGATIVE); COLOR,URINE STRAW; GLUCOSE, URINE NEGATIVE (NEGATIVE); KETONES,URINE NEGATIVE (NEGATIVE); LEUKOCYTE ESTERASE,URINE NEGATIVE (NEGATIVE); NITRITE,URINE NEGATIVE (NEGATIVE); PROTEIN,URINE 30 mg/dL (NEGATIVE); URINE SPECIFIC GRAVITY 1.006; UROBILINOGEN,URINE NEGATIVE mg/dL (<2.0)
[2019-10-04 14:46] LABS: ABSOLUTE EOSINOPHILS # (AUTO) 0.1 10^3/uL (0.0-0.6); ABSOLUTE LYMPHOCYTES (AUTO) 0.5 10^3/uL (0.5-4.7); ABSOLUTE MONOCYTES (AUTO) 0.5 10^3/uL (0.1-1.4); ABSOLUTE NEUT (AUTO) 3.7 10^3/uL (1.7-8.2); BASOPHILS % (AUTO) 0.9 % (0-2); EOSINOPHILS % (AUTO) 1.7 % (0-6); HEMATOCRIT 35.7 % (36.0-47.0); HEMOGLOBIN 12.2 g/dL (12.0-15.5); LYMPHOCYTES % (AUTO) 9.8 % (13-45); MEAN CORPUSCULAR HEMOGLOBIN 30.8 pg (27.0-33.4); MEAN CORPUSCULAR HGB CONC 34.2 g/dL (32.0-36.0); MEAN CORPUSCULAR VOLUME 90 fl (80-97); MONOCYTES % (AUTO) 10.2 % (3-13); PLATELET COUNT 335 10^3/uL (150-450); RED BLOOD COUNT 3.96 10^6/uL (3.72-5.28); RED CELL DISTRIBUTION WIDTH 13.8 % (11.5-14.0); SEGMENTED NEUTROPHILS % (AUTO) 77.4 % (42-78); TOTAL CELLS COUNTED % (AUTO) 100 %; WHITE BLOOD COUNT 4.8 10^3/uL (4.0-10.5)
[2019-10-04 14:50] LABS: UR PRO/CREAT RATIO RESULT 1.9 mg/mg (0.0-0.2); URINE CREATININE 18.9 mg/dL (16-327); URINE PROTEIN 36.8 mg/dL (<12)
[2019-10-04 15:01] LABS: ALKALINE PHOSPHATASE 84 U/L (38-126); ANION GAP 8 (5-19); ASPARTATE AMINO TRANSFERASE 31 U/L (14-36); BILIRUBIN,DIRECT 0.2 mg/dL (0.0-0.4); BILIRUBIN,TOTAL 0.6 mg/dL (0.2-1.3); BLOOD UREA NITROGEN 20 mg/dL (7-20); CALCIUM 9.6 mg/dL (8.4-10.2); CARBON DIOXIDE 26 mmol/L (22-30); CHLORIDE 103 mmol/L (98-107); GLUCOSE 108 mg/dL (75-110); POTASSIUM 4.3 mmol/L (3.6-5.0); TOTAL PROTEIN 7.2 g/dL (6.3-8.2)
== END ==
LOC: OD 13:48
PROVIDERS: ATTEND Internal Medicine Nephrology
DX: N04.8 Nephrotic syndrome with other morphologic changes (principal); R80.1 Persistent proteinuria, unspecified
CPT/HCPCS: 36415; 80053; 81001; 82570; 84156; 85025

== ENCOUNTER → 2019-12-06 | Outpatient (CLI) | payer MEDICAID ==
[2019-12-06 10:26] LABS: ABSOLUTE EOSINOPHILS # (AUTO) 0.1 10^3/uL (0.0-0.6); ABSOLUTE LYMPHOCYTES (AUTO) 0.4 10^3/uL (0.5-4.7); ABSOLUTE MONOCYTES (AUTO) 0.5 10^3/uL (0.1-1.4); ABSOLUTE NEUT (AUTO) 3.4 10^3/uL (1.7-8.2); BASOPHILS % (AUTO) 0.5 % (0-2); EOSINOPHILS % (AUTO) 1.8 % (0-6); HEMOGLOBIN 11.8 g/dL (12.0-15.5); LYMPHOCYTES % (AUTO) 8.3 % (13-45); MEAN CORPUSCULAR HEMOGLOBIN 29.6 pg (27.0-33.4); MEAN CORPUSCULAR HGB CONC 32.7 g/dL (32.0-36.0); MEAN CORPUSCULAR VOLUME 90 fl (80-97); MONOCYTES % (AUTO) 11.1 % (3-13); PLATELET COUNT 334 10^3/uL (150-450); RED BLOOD COUNT 3.98 10^6/uL (3.72-5.28); RED CELL DISTRIBUTION WIDTH 13.6 % (11.5-14.0); SEGMENTED NEUTROPHILS % (AUTO) 78.3 % (42-78); TOTAL CELLS COUNTED % (AUTO) 100 %; WHITE BLOOD COUNT 4.3 10^3/uL (4.0-10.5)
[2019-12-06 10:31] LABS: APPEARANCE,URINE SLIGHTLY-CLOUDY; BILIRUBIN,URINE NEGATIVE (NEGATIVE); COLOR,URINE YELLOW; GLUCOSE, URINE NEGATIVE (NEGATIVE); KETONES,URINE NEGATIVE (NEGATIVE); LEUKOCYTE ESTERASE,URINE NEGATIVE (NEGATIVE); NITRITE,URINE NEGATIVE (NEGATIVE); PROTEIN,URINE 100 mg/dL (NEGATIVE); UROBILINOGEN,URINE NEGATIVE mg/dL (<2.0)
[2019-12-06 10:49] LABS: UR PRO/CREAT RATIO RESULT 1.5 mg/mg (0.0-0.2); URINE CREATININE 97.7 mg/dL (16-327); URINE PROTEIN 142.7 mg/dL (<12)
[2019-12-06 10:50] LABS: ALBUMIN 3.4 g/dL (3.5-5.0); ALKALINE PHOSPHATASE 70 U/L (38-126); ANION GAP 6 (5-19); ASPARTATE AMINO TRANSFERASE 22 U/L (14-36); BILIRUBIN,TOTAL 0.3 mg/dL (0.2-1.3); BLOOD UREA NITROGEN 16 mg/dL (7-20); CALCIUM 9.3 mg/dL (8.4-10.2); CARBON DIOXIDE 29 mmol/L (22-30); CHLORIDE 103 mmol/L (98-107); CHOLESTEROL 171.49 mg/dL (0-200); GLUCOSE 148 mg/dL (75-110); POTASSIUM 4.8 mmol/L (3.6-5.0); TOTAL PROTEIN 6.5 g/dL (6.3-8.2); TRIGLYCERIDES 159 mg/dL (<150)
[2019-12-06 11:01] LABS: DIRECT LDL 117 mg/dL (<100)
[2019-12-06 11:16] LABS: VLDL CHOLESTEROL 31.8 mg/dL (10-31)
== END ==
LOC: OD 09:24
PROVIDERS: ATTEND Internal Medicine Nephrology
DX: N03.2 Chronic nephritic syndrome with diffuse membranous glomerulonephritis (principal); I10 Essential (primary) hypertension; E11.9 Type 2 diabetes mellitus without complications; R80.9 Proteinuria, unspecified; N04.9 Nephrotic syndrome with unspecified morphologic changes
CPT/HCPCS: 36415; 80053; 80061; 81001; 82570; 83036; 83735; 84156; 85025